=== PATIENT | female | born 1965 | race Two or more races ===

== ENCOUNTER 2018-09-01 09:49 | Inpatient (IN) | payer MEDICAID ==
[~2018-09-01] VITALS: Ht 162.6 cm; Wt 107.2 kg
[2018-09-01] VITALS (48 sets, daily range): BP systolic 92–136; BP diastolic 41–81
[~2018-09-01 09:49] MED LIST: ASPI-231 PO; ATE50T PO; ATOR20TA PO; CHOL50004 PO; IBU800T PO; TRAM50TA2 PO
[2018-09-01] MEDS ORDERED: MIDAZOLAM HCL 1MG/1ML-2 ML VIAL ONE (10:03)
[2018-09-01] MEDS ORDERED: ANGIOMAX 250 MG VIAL IV ONE (10:03)
[2018-09-01] MEDS ORDERED: fentaNYL CITRATE 100 MCG/2 ML VL ONE (10:03)
[2018-09-01] MEDS ORDERED: ATROPINE SULF 1 MG/10ml SYR ONE (10:04)
[2018-09-01] MEDS ORDERED: SODIUM CHL 0.9% 50 ML ONE (10:04)
[2018-09-01] MEDS ORDERED: EPINEPHrine HCL 1 MG/10 ML SYRG ONE (10:04)
[2018-09-01] MEDS ORDERED: HEPARIN SODIUM (PORCINE) 5000 UNITS/ML 1ML VIAL ONE (10:05)
[2018-09-01] MEDS ORDERED: LIDOCAINE 2%HCL (LOCAL ANESTH.) INJ 20ML MDV ONE ×2 (10:05→12:18)
[2018-09-01] MEDS ORDERED: IOHEXOL 350 MG/ML 100ML IJ ONE (10:05)
[2018-09-01] MEDS ORDERED: ONDANSETRON HCL 4 MG/2 ML VIAL ONE (10:06)
[2018-09-01] MEDS ORDERED: MORPHINE SULF INJ 2 MG/ML SYRINGE 1ML ONE (10:06)
[2018-09-01] MEDS ORDERED: ONDANSETRON HCL 4 MG/2 ML VIAL IV ONE (10:15)
[2018-09-01] MEDS ORDERED: MORPHINE SULFATE 4 MG/ML SYR/VIAL IV ONE (10:15)
[2018-09-01] MEDS ORDERED: ASPirin 81 mg TAB PO ONE (10:15)
[2018-09-01] MEDS ORDERED: DOPamine 1600MCG/ML D5W 250 ML IV ONE (10:16)
[2018-09-01 10:17] LABS: Basophils # (auto) 0.1 uL; Basophils % (auto) 0.7 % (0.0-2.0); Eosinophils # (auto) 0.3 uL; Eosinophils % (auto) 3.5 % (0.0-7.0); Hematocrit 34.3 % (36.0-46.0); Hemoglobin 11.1 g/dL (12.2-16.2); Lymphocytes # (auto) 1.6 uL; Lymphocytes % (auto) 18.3 % (10.0-50.0); Mean Corpuscular Hemoglobin 29.7 pg (28.0-32.0); Mean Corpuscular Hgb Conc. 32.3 g/dL (32.0-36.0); Mean Corpuscular Volume 91.7 fL (80.0-100.0); Monocytes # (auto) 0.6 uL; Monocytes % (auto) 6.9 % (0.0-12.0); Neutrophils # (auto) 6.3 uL; Neutrophils % (auto) 70.6 % (37.0-80.0); Nucleated Red Blood Cells % 0.2 %; Platelet Count (auto) 277 10^3/uL (140-450); Red Blood Cells 3.73 10^6/uL (4.0-5.20); Red Cell Distribution Width 15.1 % (11.8-14.3)
[2018-09-01] MEDS ORDERED: HEPARIN SODIUM (PORCINE) 5000 UNITS/ML 1ML VIAL SC ONE (10:30)
[2018-09-01 10:37] LABS: INR 0.93 (0.9-1.15); Partial Thromboplastin Time 25.7 sec (23.78-33.04)
[2018-09-01 10:38] LABS: Albumin 3.3 g/dL (3.4-5.0); BUN/Creatinine Ratio 9.2; Calcium 8.4 mg/dL (8.5-10.1)
[2018-09-01 10:43] LABS: Bilirubin, Total 0.4 mg/dL (0.2-1.0); Total Protein 7.8 g/dL (6.4-8.2)
[2018-09-01] MEDS ORDERED: NOREPINEPHRINE 8 MG/250ML KIT 0 ML IV ONE (11:01)
[2018-09-01] MEDS ORDERED: NOREPINEPHRINE 8 MG/250ML KIT 250 ML IV ONE (11:03)
[2018-09-01] MEDS ORDERED: CLOPIDOGREL 300 MG TAB ONE (11:31)
[2018-09-01] MEDS ORDERED: NITROGLYCERIN 0.4 MG SL TAB SL PRN (12:15)
[2018-09-01] MEDS ORDERED: MORPHINE SULFATE 4 MG/ML SYR/VIAL IV PRN (12:15)
[2018-09-01] MEDS ORDERED: IODIXANOL 320MG/ML 100ML BTL IV ONE (12:18)
[2018-09-01] MEDS ORDERED: FUROSEMIDE 20 MG/2 ML VIAL IV ONE (15:45)
[2018-09-01 16:11] LABS: Basophils # (auto) 0 uL; Basophils % (auto) 0.2 % (0.0-2.0); Eosinophils # (auto) 0 uL; Hematocrit 34.6 % (36.0-46.0); Hemoglobin 11.3 g/dL (12.2-16.2); Lymphocytes # (auto) 0.8 uL; Lymphocytes % (auto) 5.1 % (10.0-50.0); Mean Corpuscular Hemoglobin 29.9 pg (28.0-32.0); Mean Corpuscular Hgb Conc. 32.5 g/dL (32.0-36.0); Mean Corpuscular Volume 91.9 fL (80.0-100.0); Monocytes # (auto) 0.9 uL; Monocytes % (auto) 6.2 % (0.0-12.0); Neutrophils # (auto) 13.2 uL; Neutrophils % (auto) 88.5 % (37.0-80.0); Nucleated Red Blood Cells % 0.3 %; Platelet Count (auto) 268 10^3/uL (140-450); Red Blood Cells 3.77 10^6/uL (4.0-5.20); Red Cell Distribution Width 14.9 % (11.8-14.3); White Blood Cell 14.9 10^3/uL (4.4-10.8)
[2018-09-01 16:25] LABS: BUN/Creatinine Ratio 9.9; Calcium 7.2 mg/dL (8.5-10.1); Potassium 4.4 mmol/L (3.5-5.1)
[2018-09-01] MEDS ORDERED: AMLO5TAB13 PO (16:30)
[2018-09-01] MEDS ORDERED: MELO1TAB56 PO (16:30)
[2018-09-01 16:37] LABS: Bilirubin, Total 0.4 mg/dL (0.2-1.0); Total Protein 6.9 g/dL (6.4-8.2)
[2018-09-01] MEDS: ACETAMINOPHEN 325 MG TAB PO PRN (18:08)
[2018-09-01] MEDS: IPRATROPIUM BROM 0.5 MG/2.5ML INH SOL NEB PRN (20:07)
[2018-09-01] MEDS: ALBUTEROL SULF 2.5 MG/0.5ML(0.5%) NEB SOLN NEB PRN (20:07)
[2018-09-01] MEDS ORDERED: KETOROLAC TROMETH 30 MG/ML 1ML VIAL IV ONE (20:15)
[2018-09-01] MEDS ORDERED: DOPamine 1600mCg/ml 400MG/250ml NSorD5 KIT/BAG IV ONE (20:56)
[2018-09-01] MEDS ORDERED: ATROPINE SULF 1 MG/10ml SYR IV ONE (20:56)
[2018-09-01] MEDS ORDERED: PANTOPRAZOLE 40 MG/10 ML VIAL IV ONE (21:45)
[2018-09-01] MEDS: ATORVASTATIN 20 MG TAB PO SCH (21:52)
[2018-09-01] MEDS: NOREPINEPHRINE 8 MG/250ML KIT 250 ML IV SCH (21:53)
[2018-09-01] MEDS: ZOLPIDEM TARTRATE 5 MG TAB PO PRN (22:13)
[2018-09-02] VITALS (89 sets, daily range): BP systolic 85–127; BP diastolic 44–78
[2018-09-02] MEDS: HYDROmorphone HCL 2 MG/ML VL IV PRN ×2 (00:17→23:26)
[2018-09-02 04:32] LABS: Anion Gap 9 (5-15); BUN/Creatinine Ratio 10.1; Blood Urea Nitrogen 13 mg/dL (7-18); Calcium 7.9 mg/dL (8.5-10.1); Carbon Dioxide 22 mmol/L (21-32); Chloride 108 mmol/L (98-107); GFR African American 56 mL/min; GFR Non-African American 46 mL/min; Glucose 141 mg/dL (74-106); Potassium 4.1 mmol/L (3.5-5.1); Sodium 139 mmol/L (136-145)
[2018-09-02] MEDS: CLOPIDOGREL BISULFATE 75 MG TAB PO SCH (09:43)
[2018-09-02] MEDS: ASPirin 81 mg TAB PO SCH (09:43)
[2018-09-02] MEDS ORDERED: PANTOPRAZOLE 40 MG/10 ML VIAL IV SCH (10:00)
[2018-09-02 10:36] LABS: Basophils # (auto) 0 uL; Basophils % (auto) 0.2 % (0.0-2.0); Eosinophils # (auto) 0 uL; Eosinophils % (auto) 0.1 % (0.0-7.0); Hematocrit 30.5 % (36.0-46.0); Hemoglobin 10.1 g/dL (12.2-16.2); Lymphocytes # (auto) 1.2 uL; Lymphocytes % (auto) 14.3 % (10.0-50.0); Mean Corpuscular Hemoglobin 30.3 pg (28.0-32.0); Mean Corpuscular Volume 91.8 fL (80.0-100.0); Monocytes # (auto) 0.6 uL; Monocytes % (auto) 7.1 % (0.0-12.0); Neutrophils # (auto) 6.4 uL; Neutrophils % (auto) 78.3 % (37.0-80.0); Nucleated Red Blood Cells % 0.1 %; Platelet Count (auto) 223 10^3/uL (140-450); Red Blood Cells 3.33 10^6/uL (4.0-5.20); Red Cell Distribution Width 15.1 % (11.8-14.3); White Blood Cell 8.2 10^3/uL (4.4-10.8)
[2018-09-02] MEDS: NOREPINEPHRINE 8 MG/250ML KIT 250 ML IV SCH (11:40)
[2018-09-02] MEDS ORDERED: SODIUM CHLORIDE 0.9% 1,000 ML IV ONE (13:45)
[2018-09-02 14:27] LABS: Urine Bacteria FEW /hpf (None Seen); Urine Blood 2+ /uL (Negative); Urine Mucus FEW (None Seen); Urine Specific Gravity 1.006 (1.001-1.035); Urine WBC 23 /hpf (0 - 5)
[2018-09-02] MEDS: ACETAMINOPHEN 325 MG TAB PO PRN (16:30)
[2018-09-02] MEDS: ATORVASTATIN 20 MG TAB PO SCH (21:36)
[2018-09-02] MEDS: ZOLPIDEM TARTRATE 5 MG TAB PO PRN (21:36)
[2018-09-02] MEDS: CARVEDILOL 3.125 MG TAB PO SCH (21:36)
[2018-09-03] VITALS (51 sets, daily range): BP systolic 83–122; BP diastolic 52–91
[2018-09-03] MEDS ORDERED: SODIUM CHLORIDE 0.9% 1,000 ML IV SCH (05:15)
[2018-09-03 05:37] LABS: Basophils # (auto) 0 uL; Basophils % (auto) 0.2 % (0.0-2.0); Eosinophils # (auto) 0 uL; Eosinophils % (auto) 0.2 % (0.0-7.0); Hematocrit 27.4 % (36.0-46.0); Hemoglobin 9.1 g/dL (12.2-16.2); Lymphocytes % (auto) 11.2 % (10.0-50.0); Mean Corpuscular Hemoglobin 30.7 pg (28.0-32.0); Mean Corpuscular Hgb Conc. 33.3 g/dL (32.0-36.0); Mean Corpuscular Volume 92.2 fL (80.0-100.0); Monocytes # (auto) 0.6 uL; Monocytes % (auto) 6.7 % (0.0-12.0); Neutrophils # (auto) 7.5 uL; Neutrophils % (auto) 81.7 % (37.0-80.0); Nucleated Red Blood Cells % 0.1 %; Platelet Count (auto) 201 10^3/uL (140-450); Red Blood Cells 2.97 10^6/uL (4.0-5.20); Red Cell Distribution Width 15.3 % (11.8-14.3); White Blood Cell 9.1 10^3/uL (4.4-10.8)
[2018-09-03 06:11] LABS: Albumin 2.7 g/dL (3.4-5.0); BUN/Creatinine Ratio 12.4; Bilirubin, Total 0.4 mg/dL (0.2-1.0); Calcium 7.9 mg/dL (8.5-10.1); Total Protein 6.5 g/dL (6.4-8.2)
[2018-09-03] MEDS ORDERED: cefTRIAXone 1GM/50ML D5W 50 ML IV ONE (09:15)
[2018-09-03] MEDS: ACETAMINOPHEN 325 MG TAB PO PRN ×2 (09:33→20:33)
[2018-09-03] MEDS: LISINOPRIL 5 MG TAB PO SCH (10:00)
[2018-09-03] MEDS: CARVEDILOL 3.125 MG TAB PO SCH ×2 (10:00→22:07)
[2018-09-03] MEDS: CLOPIDOGREL BISULFATE 75 MG TAB PO SCH (11:00)
[2018-09-03] MEDS: ASPirin 81 mg TAB PO SCH (11:00)
[2018-09-03] MEDS ORDERED: DOCUSATE SOD 100 MG CAP PO ONE (11:15)
[2018-09-03] MEDS: ALBUMIN 25% 100 ML IV SCH ×2 (13:30→17:00)
[2018-09-03] MEDS ORDERED: SODIUM CHLORIDE 0.9% 1,000 ML IV ONE (13:30)
[2018-09-03] MEDS ORDERED: IOHEXOL 350 MG/ML 100ML IJ ONE (16:24)
[2018-09-03] MEDS ORDERED: ALBUMIN 25% 100 ML IV ONE (16:51)
[2018-09-03] MEDS: ALBUTEROL SULF 2.5 MG/0.5ML(0.5%) NEB SOLN NEB PRN (19:22)
[2018-09-03] MEDS: IPRATROPIUM BROM 0.5 MG/2.5ML INH SOL NEB PRN (19:22)
[2018-09-03] MEDS: ATORVASTATIN 20 MG TAB PO SCH (21:51)
[2018-09-03] MEDS: DOCUSATE SOD 100 MG CAP PO SCH (21:52)
[2018-09-03] MEDS: ZOLPIDEM TARTRATE 5 MG TAB PO PRN (21:53)
[2018-09-03] MEDS: HYDROmorphone HCL 2 MG/ML VL IV PRN (22:26)
[2018-09-04] VITALS (64 sets, daily range): BP systolic 85–129; BP diastolic 50–76
[2018-09-04] MEDS: ALBUTEROL SULF 2.5 MG/0.5ML(0.5%) NEB SOLN NEB PRN ×2 (03:51→06:43)
[2018-09-04] MEDS: IPRATROPIUM BROM 0.5 MG/2.5ML INH SOL NEB PRN ×2 (03:51→06:43)
[2018-09-04 04:41] LABS: Basophils # (auto) 0 uL; Basophils % (auto) 0.2 % (0.0-2.0); Eosinophils # (auto) 0.1 uL; Eosinophils % (auto) 0.8 % (0.0-7.0); Hematocrit 27.4 % (36.0-46.0); Hemoglobin 8.9 g/dL (12.2-16.2); Lymphocytes # (auto) 1.1 uL; Lymphocytes % (auto) 10.2 % (10.0-50.0); Mean Corpuscular Hemoglobin 30.1 pg (28.0-32.0); Mean Corpuscular Hgb Conc. 32.5 g/dL (32.0-36.0); Mean Corpuscular Volume 92.6 fL (80.0-100.0); Monocytes # (auto) 0.5 uL; Monocytes % (auto) 4.3 % (0.0-12.0); Neutrophils # (auto) 9.1 uL; Neutrophils % (auto) 84.5 % (37.0-80.0); Nucleated Red Blood Cells % 0.1 %; Platelet Count (auto) 205 10^3/uL (140-450); Red Blood Cells 2.96 10^6/uL (4.0-5.20); Red Cell Distribution Width 15.2 % (11.8-14.3); White Blood Cell 10.8 10^3/uL (4.4-10.8)
[2018-09-04 05:01] LABS: BUN/Creatinine Ratio 15.6; Calcium 8.4 mg/dL (8.5-10.1); Potassium 3.8 mmol/L (3.5-5.1)
[2018-09-04] MEDS ORDERED: IPRATROPIUM BROM 0.5 MG/2.5ML INH SOL NEB ONE (06:45)
[2018-09-04] MEDS ORDERED: methylPREDNISolone SOD SUCC 125 MG/2 ML VL IV ONE (06:45)
[2018-09-04] MEDS ORDERED: FUROSEMIDE 20 MG/2 ML VIAL IV ONE (06:45)
[2018-09-04] MEDS ORDERED: ALBUTEROL SULF 2.5 MG/0.5ML(0.5%) NEB SOLN NEB ONE (06:45)
[2018-09-04] MEDS ORDERED: DILTIAZEM HCL 25 MG/5 ML VIAL IV ONE ×2 (07:10→07:15)
[2018-09-04] MEDS ORDERED: cefTRIAXone 1GM/50ML D5W 50 ML IV SCH (09:00)
[2018-09-04] MEDS: LISINOPRIL 5 MG TAB PO SCH (09:42)
[2018-09-04] MEDS: PANTOPRAZOLE 40 MG TAB PO SCH (09:42)
[2018-09-04] MEDS: CLOPIDOGREL BISULFATE 75 MG TAB PO SCH (09:42)
[2018-09-04] MEDS: CARVEDILOL 3.125 MG TAB PO SCH ×2 (09:43→22:00)
[2018-09-04] MEDS: DOCUSATE SOD 100 MG CAP PO SCH ×2 (09:43→21:53)
[2018-09-04] MEDS: ASPirin 81 mg TAB PO SCH (09:43)
[2018-09-04] MEDS: LEVOFLOXACIN 750MG 150 ML IV SCH (09:44)
[2018-09-04] MEDS ORDERED: MORPHINE SULFATE 4 MG/ML SYR/VIAL IV ONE (11:15)
[2018-09-04] MEDS: ACETAMINOPHEN 325 MG TAB PO PRN (21:21)
[2018-09-04] MEDS: ATORVASTATIN 20 MG TAB PO SCH (21:52)
[2018-09-04] MEDS: ZOLPIDEM TARTRATE 5 MG TAB PO PRN (22:08)
[2018-09-04] MEDS: HYDROmorphone HCL 2 MG/ML VL IV PRN (22:14)
[2018-09-05] VITALS (10 sets, daily range): BP systolic 91–117; BP diastolic 53–71
[2018-09-05 04:15] LABS: Basophils # (auto) 0 uL; Eosinophils # (auto) 0 uL; Hemoglobin 8.4 g/dL (12.2-16.2); Lymphocytes # (auto) 0.8 uL; Monocytes # (auto) 0.6 uL; Monocytes % (auto) 5.9 % (0.0-12.0)
[2018-09-05 04:17] LABS: Basophils % (auto) 0.2 % (0.0-2.0); Hematocrit 25.1 % (36.0-46.0); Lymphocytes % (auto) 8.1 % (10.0-50.0); Mean Corpuscular Hemoglobin 30.5 pg (28.0-32.0); Mean Corpuscular Hgb Conc. 33.4 g/dL (32.0-36.0); Mean Corpuscular Volume 91.2 fL (80.0-100.0); Neutrophils # (auto) 8.3 uL; Neutrophils % (auto) 85.8 % (37.0-80.0); Nucleated Red Blood Cells % 0.2 %; Platelet Count (auto) 235 10^3/uL (140-450); Red Blood Cells 2.75 10^6/uL (4.0-5.20); Red Cell Distribution Width 14.8 % (11.8-14.3); White Blood Cell 9.7 10^3/uL (4.4-10.8)
[2018-09-05 04:33] LABS: Albumin 3.1 g/dL (3.4-5.0); Calcium 8.6 mg/dL (8.5-10.1); Potassium 3.7 mmol/L (3.5-5.1)
[2018-09-05 04:36] LABS: BUN/Creatinine Ratio 21.2
[2018-09-05 04:39] LABS: Bilirubin, Total 0.7 mg/dL (0.2-1.0); Total Protein 7.1 g/dL (6.4-8.2)
[2018-09-05] MEDS: LISINOPRIL 5 MG TAB PO SCH (09:41)
[2018-09-05] MEDS: ASPirin 81 mg TAB PO SCH (09:42)
[2018-09-05] MEDS: PANTOPRAZOLE 40 MG TAB PO SCH (09:43)
[2018-09-05] MEDS: CLOPIDOGREL BISULFATE 75 MG TAB PO SCH (09:44)
[2018-09-05] MEDS: CARVEDILOL 3.125 MG TAB PO SCH ×2 (09:45→22:27)
[2018-09-05] MEDS: LEVOFLOXACIN 750MG 150 ML IV SCH (09:48)
[2018-09-05] MEDS: DOCUSATE SOD 100 MG CAP PO SCH ×2 (09:48→22:24)
[2018-09-05] MEDS: ACETAMINOPHEN 325 MG TAB PO PRN (16:28)
[2018-09-05] MEDS: ATORVASTATIN 20 MG TAB PO SCH (22:24)
[2018-09-05] MEDS: ALBUTEROL SULF 2.5 MG/0.5ML(0.5%) NEB SOLN NEB PRN (22:38)
[2018-09-05] MEDS: IPRATROPIUM BROM 0.5 MG/2.5ML INH SOL NEB PRN (22:38)
[2018-09-05] MEDS: ZOLPIDEM TARTRATE 5 MG TAB PO PRN (23:09)
[2018-09-05] MEDS: HYDROmorphone HCL 2 MG/ML VL IV PRN (23:09)
[2018-09-06] VITALS (8 sets, daily range): BP systolic 91–110; BP diastolic 62–77
[2018-09-06] MEDS: CLOPIDOGREL BISULFATE 75 MG TAB PO SCH (09:16)
[2018-09-06] MEDS: PANTOPRAZOLE 40 MG TAB PO SCH (09:16)
[2018-09-06] MEDS: ASPirin 81 mg TAB PO SCH (09:17)
[2018-09-06] MEDS: CARVEDILOL 3.125 MG TAB PO SCH ×2 (09:17→22:16)
[2018-09-06] MEDS: LISINOPRIL 5 MG TAB PO SCH (09:18)
[2018-09-06] MEDS: LEVOFLOXACIN 750MG 150 ML IV SCH (09:18)
[2018-09-06] MEDS: DOCUSATE SOD 100 MG CAP PO SCH (10:00)
[2018-09-06] MEDS ORDERED: MORPHINE SULFATE 4 MG/ML SYR/VIAL IV PRN (11:15)
[2018-09-06] MEDS ORDERED: POTASSIUM CHL 10 Meq TABLET PO ONE (11:15)
[2018-09-06] MEDS ORDERED: FUROSEMIDE 20 MG TAB PO ONE (11:15)
[2018-09-06] MEDS: ACETAMINOPHEN 325 MG TAB PO PRN (17:21)
[2018-09-06] MEDS: ATORVASTATIN 20 MG TAB PO SCH (22:17)
[2018-09-06] MEDS: ZOLPIDEM TARTRATE 5 MG TAB PO PRN (23:07)
[2018-09-06] MEDS: HYDROmorphone HCL 2 MG/ML VL IV PRN (23:07)
[2018-09-07 05:00] VITALS: BP 90/56
[2018-09-07 07:00] LABS: Basophils # (auto) 0 uL; Basophils % (auto) 0.4 % (0.0-2.0); Eosinophils # (auto) 0.2 uL; Eosinophils % (auto) 3.2 % (0.0-7.0); Hematocrit 28.2 % (36.0-46.0); Hemoglobin 9.4 g/dL (12.2-16.2); Lymphocytes # (auto) 1.1 uL; Lymphocytes % (auto) 14.1 % (10.0-50.0); Mean Corpuscular Hemoglobin 30.1 pg (28.0-32.0); Mean Corpuscular Hgb Conc. 33.2 g/dL (32.0-36.0); Mean Corpuscular Volume 90.5 fL (80.0-100.0); Monocytes # (auto) 0.5 uL; Monocytes % (auto) 7.2 % (0.0-12.0); Neutrophils # (auto) 5.7 uL; Neutrophils % (auto) 75.1 % (37.0-80.0); Nucleated Red Blood Cells % 0.1 %; Platelet Count (auto) 313 10^3/uL (140-450); Red Blood Cells 3.12 10^6/uL (4.0-5.20); Red Cell Distribution Width 14.7 % (11.8-14.3); White Blood Cell 7.6 10^3/uL (4.4-10.8)
[2018-09-07 07:11] LABS: BUN/Creatinine Ratio 18.8; Potassium 3.5 mmol/L (3.5-5.1)
[2018-09-07] MEDS: ACETAMINOPHEN 325 MG TAB PO PRN (08:23)
[2018-09-07 08:37] VITALS: BP 113/79
[2018-09-07] MEDS: LEVOFLOXACIN 750MG 150 ML IV SCH (09:29)
[2018-09-07] MEDS: ASPirin 81 mg TAB PO SCH (09:30)
[2018-09-07] MEDS: LISINOPRIL 5 MG TAB PO SCH (09:30)
[2018-09-07] MEDS: CARVEDILOL 3.125 MG TAB PO SCH ×2 (09:31→21:26)
[2018-09-07] MEDS: PANTOPRAZOLE 40 MG TAB PO SCH (09:31)
[2018-09-07] MEDS: CLOPIDOGREL BISULFATE 75 MG TAB PO SCH (09:31)
[2018-09-07 12:53] VITALS: BP 102/71
[2018-09-07 17:00] VITALS: BP 98/58
[2018-09-07] MEDS: ATORVASTATIN 20 MG TAB PO SCH (21:26)
[2018-09-07 22:00] VITALS: BP 107/69
[2018-09-07] MEDS: ZOLPIDEM TARTRATE 5 MG TAB PO PRN (22:52)
[2018-09-07] MEDS: HYDROmorphone HCL 2 MG/ML VL IV PRN (22:52)
[2018-09-08 05:00] VITALS: BP 90/51
[2018-09-08] MEDS ORDERED: OPTISON 3ml Vial for INJ IV ONE (08:31)
[2018-09-08 09:28] VITALS: BP 96/63
[2018-09-08] MEDS: PANTOPRAZOLE 40 MG TAB PO SCH (09:51)
[2018-09-08] MEDS: CARVEDILOL 3.125 MG TAB PO SCH ×2 (09:51→21:09)
[2018-09-08] MEDS: CLOPIDOGREL BISULFATE 75 MG TAB PO SCH (09:51)
[2018-09-08] MEDS: LEVOFLOXACIN 250 MG TAB PO SCH (09:51)
[2018-09-08] MEDS: LISINOPRIL 5 MG TAB PO SCH (09:52)
[2018-09-08] MEDS: ASPirin 81 mg TAB PO SCH (09:52)
[2018-09-08 13:25] VITALS: BP 83/60
[2018-09-08 16:38] VITALS: BP 96/65
[2018-09-08 20:19] VITALS: BP 96/65
[2018-09-08] MEDS: HYDROmorphone HCL 2 MG/ML VL IV PRN (21:09)
[2018-09-08] MEDS: ATORVASTATIN 20 MG TAB PO SCH (21:09)
[2018-09-08] MEDS: ZOLPIDEM TARTRATE 5 MG TAB PO PRN (21:30)
[2018-09-08 21:51] VITALS: BP 107/70
[2018-09-09 05:00] VITALS: BP 99/66
[2018-09-09] MEDS: PANTOPRAZOLE 40 MG TAB PO SCH (08:43)
[2018-09-09] MEDS: CLOPIDOGREL BISULFATE 75 MG TAB PO SCH (08:43)
[2018-09-09] MEDS: LEVOFLOXACIN 250 MG TAB PO SCH (08:43)
[2018-09-09] MEDS: ASPirin 81 mg TAB PO SCH (08:44)
[2018-09-09] MEDS: CARVEDILOL 3.125 MG TAB PO SCH ×2 (08:45→22:26)
[2018-09-09] MEDS: LISINOPRIL 5 MG TAB PO SCH (08:46)
[2018-09-09 09:00] VITALS: BP 93/67
[2018-09-09] MEDS ORDERED: ASPI81CH43 PO (10:30)
[2018-09-09] MEDS ORDERED: LISI-275 PO (10:30)
[2018-09-09] MEDS ORDERED: CLOP75TA28 PO (10:30)
[2018-09-09] MEDS ORDERED: ATOR20TA50 PO (10:30)
[2018-09-09] MEDS ORDERED: CAR3125T PO (10:30)
[2018-09-09] MEDS ORDERED: LEVO250T19 PO (10:37)
[2018-09-09] MEDS ORDERED: NITR0.4S29 SL (10:37)
[2018-09-09 13:00] VITALS: BP 91/58
[2018-09-09 17:13] VITALS: BP 95/63
[2018-09-09 21:29] VITALS: BP 113/72
[2018-09-09 22:00] VITALS: BP 113/72
[2018-09-09] MEDS: ATORVASTATIN 20 MG TAB PO SCH (22:26)
[2018-09-09] MEDS: HYDROmorphone HCL 2 MG/ML VL IV PRN (22:27)
[2018-09-10] MEDS: ACETAMINOPHEN 325 MG TAB PO PRN (05:30)
[2018-09-10 05:39] VITALS: BP 104/57
[2018-09-10 09:19] VITALS: BP 102/70
[2018-09-10] MEDS: CLOPIDOGREL BISULFATE 75 MG TAB PO SCH (09:57)
[2018-09-10] MEDS: CARVEDILOL 3.125 MG TAB PO SCH ×2 (09:57→22:03)
[2018-09-10] MEDS: ASPirin 81 mg TAB PO SCH (09:58)
[2018-09-10] MEDS: LEVOFLOXACIN 250 MG TAB PO SCH (09:58)
[2018-09-10] MEDS: PANTOPRAZOLE 40 MG TAB PO SCH (09:58)
[2018-09-10] MEDS: LISINOPRIL 5 MG TAB PO SCH (09:59)
[2018-09-10 13:10] VITALS: BP 93/59
[2018-09-10 16:28] VITALS: BP 127/74
[2018-09-10 17:22] VITALS: BP 122/76
[2018-09-10] MEDS: ATORVASTATIN 20 MG TAB PO SCH (22:03)
== END 2018-09-10 22:00 | disposition home or self-care (01) | DRG 248 ==
LOC: ER 09:49 → EDUNIT# 09:49 → CATH 11:36 → ICU WEST 11:37 → DOU IN ICU 09-05 03:45 → TELE-EAST 09-06 21:00
PROVIDERS: ADMIT Internal Medicine Cardiovascular Disease; ATTEND Internal Medicine
PROC: 02703DZ Dilation of Coronary Artery, One Artery with Intraluminal Device, Percutaneous Approach (ICD-10-PCS; principal; 2018-09-01)
PROC: 02C03ZZ Extirpation of Matter from Coronary Artery, One Artery, Percutaneous Approach (ICD-10-PCS; 2018-09-01)
PROC: 4A023N7 Measurement of Cardiac Sampling and Pressure, Left Heart, Percutaneous Approach (ICD-10-PCS; 2018-09-01)
PROC: B2111ZZ Fluoroscopy of Multiple Coronary Arteries using Low Osmolar Contrast (ICD-10-PCS; 2018-09-01)
PROC: B2151ZZ Fluoroscopy of Left Heart using Low Osmolar Contrast (ICD-10-PCS; 2018-09-01)
PROC: 30233N1 Transfusion of Nonautologous Red Blood Cells into Peripheral Vein, Percutaneous Approach (ICD-10-PCS; 2018-09-01)
PROC: 5A09357 Assistance with Respiratory Ventilation, Less than 24 Consecutive Hours, Continuous Positive Airway Pressure (ICD-10-PCS; 2018-09-04)
DX: I21.3 ST elevation (STEMI) myocardial infarction of unspecified site (principal); J18.9 Pneumonia, unspecified organism; R57.0 Cardiogenic shock; N17.0 Acute kidney failure with tubular necrosis; I50.41 Acute combined systolic (congestive) and diastolic (congestive) heart failure; J96.01 Acute respiratory failure with hypoxia; I44.2 Atrioventricular block, complete; E44.1 Mild protein-calorie malnutrition; E87.2 Acidosis; N39.0 Urinary tract infection, site not specified; I13.0 Hypertensive heart and chronic kidney disease with heart failure and stage 1 through stage 4 chronic kidney disease, or unspecified chronic kidney disease; D25.9 Leiomyoma of uterus, unspecified; D64.9 Anemia, unspecified; E11.21 Type 2 diabetes mellitus with diabetic nephropathy; E78.5 Hyperlipidemia, unspecified; N95.0 Postmenopausal bleeding; N18.2 Chronic kidney disease, stage 2 (mild); B96.20 Unspecified Escherichia coli [E. coli] as the cause of diseases classified elsewhere; I25.110 Atherosclerotic heart disease of native coronary artery with unstable angina pectoris; E66.01 Morbid (severe) obesity due to excess calories; Z68.41 Body mass index [BMI] 40.0-44.9, adult; Z90.49 Acquired absence of other specified parts of digestive tract
CPT/HCPCS: 36415; 36430; 36600; 71045; 71275; 76856; 80048; 80053; 80061; 81001; 82805; 83036; 83735; 83880; 84443; 84484; 85025; 85379; 85610; 85730; 86850; 86900; 86901; 86920; 87070; 87081; 87086; 87088; 87186; 87205; 92933; 93005; 93306; 93458; 94640; 94660; 96361; 96365; 96375; 97110; 97116; 97163; 99152; 99291; A6257; C1751; C1874; C1887; C9113; G0378; J0696; J1885; J1956; J2250; J2405; P9047; Q9956; Q9967

== ENCOUNTER 2018-09-22 17:42 | Emergency (ER) | payer MEDICAID ==
[~2018-09-22] VITALS: Ht 162.6 cm; Wt 100.2 kg
[~2018-09-22 17:42] MED LIST changes: -ASPI-231 PO; +ASPI81CH43 PO; -ATE50T PO; -ATOR20TA PO; +ATOR20TA50 PO; +CAR3125T PO; -CHOL50004 PO; +CLOP75TA28 PO; -IBU800T PO; +LEVO250T19 PO; +LISI-275 PO; +NITR0.4S29 SL; -TRAM50TA2 PO
[2018-09-22 18:42] LABS: Basophils # (auto) 0.1 uL; Eosinophils # (auto) 0.2 uL; Eosinophils % (auto) 3.8 % (0.0-7.0); Hematocrit 30.3 % (36.0-46.0); Lymphocytes % (auto) 17.5 % (10.0-50.0); Mean Corpuscular Hemoglobin 29.6 pg (28.0-32.0); Mean Corpuscular Hgb Conc. 32.8 g/dL (32.0-36.0); Mean Corpuscular Volume 90.1 fL (80.0-100.0); Monocytes # (auto) 0.4 uL; Monocytes % (auto) 6.9 % (0.0-12.0); Neutrophils # (auto) 4.2 uL; Neutrophils % (auto) 70.8 % (37.0-80.0); Platelet Count (auto) 407 10^3/uL (140-450); Red Blood Cells 3.37 10^6/uL (4.0-5.20)
[2018-09-22 18:48] LABS: Albumin 3.5 g/dL (3.4-5.0); Anion Gap 3 (5-15); Blood Urea Nitrogen 24 mg/dL (7-18); Carbon Dioxide 27 mmol/L (21-32); Chloride 107 mmol/L (98-107); Glucose 113 mg/dL (74-106); Magnesium 2.3 mg/dL (1.6-2.6); Potassium 4.1 mmol/L (3.5-5.1); Sodium 137 mmol/L (136-145)
[2018-09-22 18:53] LABS: Alanine Aminotransferase 20 U/L (13-56); Alkaline Phosphatase 100 U/L (45-117); Aspartate Aminotransferase 17 U/L (15-37); BUN/Creatinine Ratio 20.7; Bilirubin, Total 0.4 mg/dL (0.2-1.0); GFR African American 63 mL/min; GFR Non-African American 52 mL/min; Total Protein 8.2 g/dL (6.4-8.2)
[2018-09-22 18:55] LABS: INR 0.95 (0.9-1.15); Partial Thromboplastin Time 29.3 sec (23.78-33.04); Prothrombin Time 10.2 sec (9.27-12.13)
[2018-09-22 21:20] VITALS: BP 196/84
[2018-09-22] MEDS ORDERED: FUROSEMIDE 20 MG/2 ML VIAL IV ONE (23:00)
== END 2018-09-22 23:29 | disposition home or self-care (01) ==
LOC: ER 17:47
DX: I11.0 Hypertensive heart disease with heart failure (principal); I50.9 Heart failure, unspecified; I25.2 Old myocardial infarction; D64.9 Anemia, unspecified; Z90.49 Acquired absence of other specified parts of digestive tract
CPT/HCPCS: 36415; 71046; 80053; 83735; 83880; 84484; 85025; 85610; 85730; 93005; 94761; 99284; J1940

== ENCOUNTER 2018-10-17 13:35 | Inpatient (IN) | payer MEDICAID ==
[2018-10-17] VITALS (22 sets, daily range): BP systolic 87–124; BP diastolic 47–74
[~2018-10-17] VITALS: Ht 162.6 cm; Wt 101.0 kg
[2018-10-17] MEDS ORDERED: SODIUM CHLORIDE 0.9% 500 ML IV ONE (13:53)
[2018-10-17 14:28] LABS: Basophils # (auto) 0.1 uL; Eosinophils # (auto) 0.2 uL; Neutrophils # (auto) 3.9 uL; Red Blood Cells 2.39 10^6/uL (4.0-5.20)
[2018-10-17 14:29] LABS: Basophils % (auto) 1.1 % (0.0-2.0); Eosinophils % (auto) 4.4 % (0.0-7.0); Hematocrit 20.8 % (36.0-46.0); Lymphocytes # (auto) 1.1 uL; Lymphocytes % (auto) 19.5 % (10.0-50.0); Mean Corpuscular Hemoglobin 27.8 pg (28.0-32.0); Mean Corpuscular Hgb Conc. 31.9 g/dL (32.0-36.0); Monocytes # (auto) 0.3 uL; Monocytes % (auto) 5.7 % (0.0-12.0); Neutrophils % (auto) 69.3 % (37.0-80.0); Nucleated Red Blood Cells % 0.1 %; Platelet Count (auto) 462 10^3/uL (140-450); Red Cell Distribution Width 15.6 % (11.8-14.3); White Blood Cell 5.6 10^3/uL (4.4-10.8)
[2018-10-17 14:46] LABS: Alanine Aminotransferase 18 U/L (13-56); Albumin 3.4 g/dL (3.4-5.0); Anion Gap 2 (5-15); Aspartate Aminotransferase 17 U/L (15-37); BUN/Creatinine Ratio 16.8; Blood Urea Nitrogen 17 mg/dL (7-18); Carbon Dioxide 23 mmol/L (21-32); Chloride 111 mmol/L (98-107); GFR African American 74 mL/min; GFR Non-African American 61 mL/min; Glucose 160 mg/dL (74-106); Magnesium 2.2 mg/dL (1.6-2.6); Sodium 136 mmol/L (136-145)
[2018-10-17 14:47] LABS: INR 0.93 (0.9-1.15); Partial Thromboplastin Time 25.2 sec (23.78-33.04)
[2018-10-17 14:51] LABS: Alkaline Phosphatase 92 U/L (45-117); Bilirubin, Total 0.3 mg/dL (0.2-1.0)
[2018-10-17 15:20] LABS: Hemoglobin 6.6 g/dL (12.2-16.2)
[2018-10-17] MEDS ORDERED: PANTOPRAZOLE 40 MG TAB PO ONE (15:45)
[2018-10-17] MEDS ORDERED: MORPHINE SULFATE 4 MG/ML SYR/VIAL IV PRN (15:45)
[2018-10-17] MEDS ORDERED: PROMETHAZINE HCL 25 MG/ML 1ML IV PRN (15:45)
[2018-10-17] MEDS ORDERED: LORazepam 0.5 MG TAB PO PRN (15:45)
[2018-10-17] MEDS ORDERED: DEXTROSE (50%) 50ML SYRG IV PRN (15:45)
[2018-10-17] MEDS ORDERED: NITROGLYCERIN 0.4 MG SL TAB SL PRN (15:45)
[2018-10-17] MEDS: SODIUM CHLORIDE 0.9% 1,000 ML IV SCH ×2 (16:02→23:35)
[2018-10-17] MEDS: ACCU-CHEK COMFORT CURVE STRIP VI SCH (18:00)
[2018-10-17] MEDS: ACETAMINOPHEN 500 MG TAB PO PRN (21:03)
[2018-10-17] MEDS: ATORVASTATIN CALCIUM 40 MG PO SCH (22:03)
[2018-10-18] VITALS (31 sets, daily range): BP systolic 79–118; BP diastolic 33–82
[2018-10-18] MEDS: ACCU-CHEK COMFORT CURVE STRIP VI SCH ×3 (00:24→11:51)
[2018-10-18 00:49] LABS: Hematocrit 19.3 % (36.0-46.0)
[2018-10-18 00:52] LABS: Hemoglobin 6.2 g/dL (12.2-16.2)
[2018-10-18 05:54] LABS: Hemoglobin 9.2 g/dL (12.2-16.2)
[2018-10-18 05:56] LABS: Hematocrit 29.1 % (36.0-46.0)
[2018-10-18] MEDS: SODIUM CHLORIDE 0.9% 1,000 ML IV SCH ×2 (07:35→13:17)
[2018-10-18] MEDS: PANTOPRAZOLE 40 MG TAB PO SCH (10:25)
[2018-10-18] MEDS: ACETAMINOPHEN 500 MG TAB PO PRN (16:54)
[2018-10-18 17:24] LABS: Hematocrit 21.7 % (36.0-46.0)
[2018-10-18] MEDS: MORPHINE SULFATE 4 MG/ML SYR/VIAL IV PRN (20:55)
[2018-10-18] MEDS: ATORVASTATIN CALCIUM 40 MG PO SCH (21:55)
[2018-10-19] VITALS (7 sets, daily range): BP systolic 96–119; BP diastolic 58–77
[2018-10-19 01:10] LABS: Hemoglobin 7.7 g/dL (12.2-16.2)
[2018-10-19] MEDS: TEMAZEPAM 15 MG CAP PO PRN ×2 (01:11→21:49)
[2018-10-19 01:12] LABS: Hematocrit 23.6 % (36.0-46.0)
[2018-10-19] MEDS: SODIUM CHLORIDE 0.9% 1,000 ML IV SCH ×3 (03:18→14:29)
[2018-10-19] MEDS: HYDROcodone-ACET 5/325MG TAB PO PRN ×2 (03:28→21:53)
[2018-10-19 05:19] LABS: Basophils # (auto) 0 uL; Eosinophils # (auto) 0.4 uL; Monocytes % (auto) 8.5 % (0.0-12.0)
[2018-10-19 05:21] LABS: Basophils % (auto) 0.5 % (0.0-2.0); Eosinophils % (auto) 5.9 % (0.0-7.0); Hematocrit 23.2 % (36.0-46.0); Hemoglobin 7.8 g/dL (12.2-16.2); Lymphocytes # (auto) 1.5 uL; Lymphocytes % (auto) 22.9 % (10.0-50.0); Mean Corpuscular Hemoglobin 28.1 pg (28.0-32.0); Mean Corpuscular Hgb Conc. 33.5 g/dL (32.0-36.0); Monocytes # (auto) 0.5 uL; Neutrophils % (auto) 62.2 % (37.0-80.0); Nucleated Red Blood Cells % 0.1 %; Platelet Count (auto) 301 10^3/uL (140-450); Red Blood Cells 2.77 10^6/uL (4.0-5.20); Red Cell Distribution Width 16.2 % (11.8-14.3); White Blood Cell 6.4 10^3/uL (4.4-10.8)
[2018-10-19 05:31] LABS: Calcium 8.1 mg/dL (8.5-10.1); Potassium 3.8 mmol/L (3.5-5.1)
[2018-10-19 05:33] LABS: BUN/Creatinine Ratio 13.3
[2018-10-19] MEDS: PANTOPRAZOLE 40 MG TAB PO SCH (10:00)
[2018-10-19] MEDS: ATORVASTATIN CALCIUM 40 MG PO SCH (21:49)
[2018-10-20 05:13] LABS: Hemoglobin 8.3 g/dL (12.2-16.2)
[2018-10-20 05:17] LABS: Hematocrit 25.3 % (36.0-46.0)
[2018-10-20] MEDS: SODIUM CHLORIDE 0.9% 1,000 ML IV SCH ×2 (06:52→23:05)
[2018-10-20 07:30] VITALS: BP 122/80
[2018-10-20] MEDS ORDERED: CLINDAMYCIN 600MG IV 50 ML IV ONE (08:46)
[2018-10-20] MEDS ORDERED: MIDAZOLAM HCL 1MG/1ML-2 ML VIAL ONE (09:02)
[2018-10-20] MEDS ORDERED: PROPOFOL 10 MG/ML 20 ML IV ONE (09:02)
[2018-10-20] MEDS ORDERED: fentaNYL CITRATE 100 MCG/2 ML VL ONE (09:02)
[2018-10-20] MEDS ORDERED: ONDANSETRON HCL 4 MG/2 ML VIAL IV PRN (09:30)
[2018-10-20] MEDS: PANTOPRAZOLE 40 MG TAB PO SCH (10:00)
[2018-10-20 12:00] VITALS: BP 101/68
[2018-10-20 16:21] LABS: Hematocrit 22.8 % (36.0-46.0); Hemoglobin 7.5 g/dL (12.2-16.2)
[2018-10-20 16:30] VITALS: BP 102/64
[2018-10-20 20:00] VITALS: BP 104/63
[2018-10-20] MEDS: ATORVASTATIN CALCIUM 40 MG PO SCH (21:17)
[2018-10-20] MEDS: TEMAZEPAM 15 MG CAP PO PRN (22:22)
[2018-10-21] VITALS: BP 97/57
[2018-10-21 04:00] VITALS: BP 123/86
[2018-10-21] MEDS: MORPHINE SULFATE 4 MG/ML SYR/VIAL IV PRN (05:07)
[2018-10-21 05:50] LABS: Basophils # (auto) 0 uL; Eosinophils # (auto) 0.3 uL; Lymphocytes # (auto) 1.5 uL; Monocytes # (auto) 0.4 uL
[2018-10-21 05:53] LABS: Basophils % (auto) 0.5 % (0.0-2.0); Eosinophils % (auto) 4.7 % (0.0-7.0); Mean Corpuscular Hemoglobin 27.9 pg (28.0-32.0); Mean Corpuscular Hgb Conc. 33.2 g/dL (32.0-36.0); Mean Corpuscular Volume 84.1 fL (80.0-100.0); Monocytes % (auto) 6.7 % (0.0-12.0); Neutrophils # (auto) 3.8 uL; Neutrophils % (auto) 63.1 % (37.0-80.0); Platelet Count (auto) 316 10^3/uL (140-450); Red Blood Cells 2.86 10^6/uL (4.0-5.20); Red Cell Distribution Width 16.1 % (11.8-14.3)
[2018-10-21 08:00] VITALS: BP 111/74
[2018-10-21] MEDS: ACETAMINOPHEN 500 MG TAB PO PRN (08:57)
[2018-10-21] MEDS: PANTOPRAZOLE 40 MG TAB PO SCH (08:57)
[2018-10-21 11:56] VITALS: BP 121/90
[2018-10-21 13:00] VITALS: BP 121/90
== END 2018-10-21 14:45 | disposition home or self-care (01) | DRG 744 ==
LOC: ER 13:35 → OVERFLOW 15:35 → ICU WEST 18:06 → DOU IN ICU 10-18 11:23
PROVIDERS: ADMIT Internal Medicine; ATTEND Internal Medicine
PROC: 30233N1 Transfusion of Nonautologous Red Blood Cells into Peripheral Vein, Percutaneous Approach (ICD-10-PCS; 2018-10-17)
PROC: 0UJD8ZZ Inspection of Uterus and Cervix, Via Natural or Artificial Opening Endoscopic (ICD-10-PCS; 2018-10-20)
PROC: 0UDB7ZZ Extraction of Endometrium, Via Natural or Artificial Opening (ICD-10-PCS; principal; 2018-10-20 09:00)
DX: D25.9 Leiomyoma of uterus, unspecified (principal); I42.9 Cardiomyopathy, unspecified; I50.22 Chronic systolic (congestive) heart failure; D62 Acute posthemorrhagic anemia; N95.0 Postmenopausal bleeding; E11.9 Type 2 diabetes mellitus without complications; E66.9 Obesity, unspecified; E78.5 Hyperlipidemia, unspecified; I11.0 Hypertensive heart disease with heart failure; I25.2 Old myocardial infarction; I25.10 Atherosclerotic heart disease of native coronary artery without angina pectoris; N81.10 Cystocele, unspecified; N81.6 Rectocele; Z79.02 Long term (current) use of antithrombotics/antiplatelets; Z79.82 Long term (current) use of aspirin; Z82.3 Family history of stroke; Z82.49 Family history of ischemic heart disease and other diseases of the circulatory system; Z83.3 Family history of diabetes mellitus; Z95.5 Presence of coronary angioplasty implant and graft; Z68.38 Body mass index [BMI] 38.0-38.9, adult; M19.90 Unspecified osteoarthritis, unspecified site; M10.9 Gout, unspecified; Z90.49 Acquired absence of other specified parts of digestive tract
CPT/HCPCS: 36415; 71045; 76856; 80048; 80053; 82962; 83036; 83735; 84484; 85014; 85018; 85025; 85045; 85610; 85730; 86850; 86900; 86901; 86920; 87081; 93005; 94761; 96360; G0378; J2250; J2704; J3490

== ENCOUNTER 2018-11-12 01:03 | Emergency (ER) | payer SELFPAY ==
[~2018-11-12] VITALS: Ht 162.6 cm; Wt 98.0 kg
[2018-11-12 02:24] LABS: Basophils # (auto) 0 uL; Basophils % (auto) 0.4 % (0.0-2.0); Eosinophils # (auto) 0.3 uL; Eosinophils % (auto) 3.4 % (0.0-7.0); Hematocrit 25.5 % (36.0-46.0); Hemoglobin 8.2 g/dL (12.2-16.2); Lymphocytes # (auto) 1.3 uL; Lymphocytes % (auto) 14.6 % (10.0-50.0); Mean Corpuscular Hemoglobin 25.5 pg (28.0-32.0); Mean Corpuscular Volume 79.6 fL (80.0-100.0); Monocytes # (auto) 0.5 uL; Monocytes % (auto) 5.7 % (0.0-12.0); Neutrophils % (auto) 75.9 % (37.0-80.0); Nucleated Red Blood Cells % 0.1 %; Platelet Count (auto) 376 10^3/uL (140-450); White Blood Cell 9.2 10^3/uL (4.4-10.8)
[2018-11-12 02:44] LABS: Alanine Aminotransferase 22 U/L (13-56); Albumin 3.1 g/dL (3.4-5.0); Anion Gap 10 (5-15); BUN/Creatinine Ratio 20.2; Blood Urea Nitrogen 20 mg/dL (7-18); Calcium 8.5 mg/dL (8.5-10.1); Carbon Dioxide 22 mmol/L (21-32); Chloride 106 mmol/L (98-107); GFR African American 75 mL/min; GFR Non-African American 62 mL/min; Glucose 125 mg/dL (74-106); Potassium 3.8 mmol/L (3.5-5.1); Sodium 138 mmol/L (136-145)
[2018-11-12 02:47] LABS: INR 0.93 (0.9-1.15); Partial Thromboplastin Time 25.2 sec (23.78-33.04)
[2018-11-12 02:50] LABS: Alkaline Phosphatase 105 U/L (45-117); Aspartate Aminotransferase 19 U/L (15-37); Bilirubin, Total 0.2 mg/dL (0.2-1.0); Total Protein 7.6 g/dL (6.4-8.2)
[2018-11-12] MEDS ORDERED: SODIUM CHLORIDE 0.9% 1,000 ML IV ONE (02:52)
[2018-11-12 03:12] LABS: Thyroid Stimulating Hormone 1.9 uIU/mL (0.358-3.74)
[2018-11-12 07:31] LABS: Hemoglobin 7.1 g/dL (12.2-16.2)
[2018-11-12 07:33] LABS: Hematocrit 22.6 % (36.0-46.0)
[2018-11-12 09:30] VITALS: BP 99/69
[2018-11-12 09:30] LABS: Urine Bacteria NONE SEEN /hpf (None Seen); Urine Blood TRACE /uL (Negative); Urine Mucus FEW (None Seen); Urine Specific Gravity 1.015 (1.001-1.035); Urine WBC 1 /hpf (0 - 5)
[2018-11-12 09:44] VITALS: BP 103/66
[2018-11-12 11:25] VITALS: BP 116/54
[2018-11-12 11:44] VITALS: BP 106/76
== END 2018-11-12 11:54 | disposition home or self-care (01) ==
LOC: ER 01:03
DX: N93.8 Other specified abnormal uterine and vaginal bleeding (principal); I11.0 Hypertensive heart disease with heart failure; I50.9 Heart failure, unspecified; I25.2 Old myocardial infarction; M10.9 Gout, unspecified; Z98.61 Coronary angioplasty status
CPT/HCPCS: 36415; 36430; 71045; 80053; 81001; 83735; 84443; 84484; 84702; 85014; 85018; 85025; 85610; 85730; 86850; 86900; 86901; 86920; 93005; 94761; 96360; 96361; 99285; J7030; P9016

== ENCOUNTER → 2018-12-10 | Outpatient (CLI) | payer MEDICAID | END | disposition home or self-care (01) | LOC: Rad HDHVI 15:34 | PROVIDERS: ATTEND Internal Medicine | DX: I11.0 Hypertensive heart disease with heart failure (principal); I50.9 Heart failure, unspecified; I42.9 Cardiomyopathy, unspecified | CPT/HCPCS: 93306 ==

== ENCOUNTER 2018-12-27 16:22 | Emergency (ER) | payer MEDICAID ==
[~2018-12-27] VITALS: Ht 162.6 cm; Wt 98.0 kg
[2018-12-27 17:34] LABS: Basophils # (auto) 0 uL; Eosinophils # (auto) 0.6 uL; Lymphocytes # (auto) 1.2 uL; Mean Corpuscular Hgb Conc. 30.5 g/dL (32.0-36.0); Monocytes # (auto) 0.6 uL; White Blood Cell 6.2 10^3/uL (4.4-10.8)
[2018-12-27 17:35] LABS: Basophils % (auto) 0.8 % (0.0-2.0); Eosinophils % (auto) 9.5 % (0.0-7.0); Hematocrit 27.3 % (36.0-46.0); Hemoglobin 8.3 g/dL (12.2-16.2); Lymphocytes % (auto) 20.1 % (10.0-50.0); Mean Corpuscular Hemoglobin 22.5 pg (28.0-32.0); Mean Corpuscular Volume 73.9 fL (80.0-100.0); Monocytes % (auto) 9.2 % (0.0-12.0); Neutrophils # (auto) 3.7 uL; Neutrophils % (auto) 60.4 % (37.0-80.0); Nucleated Red Blood Cells % 0.1 %; Platelet Count (auto) 403 10^3/uL (140-450); Red Cell Distribution Width 18.9 % (11.8-14.3)
[2018-12-27 18:04] LABS: Albumin 3.3 g/dL (3.4-5.0); Calcium 8.3 mg/dL (8.5-10.1); Potassium 3.7 mmol/L (3.5-5.1)
[2018-12-27 18:07] LABS: Bilirubin, Total 0.2 mg/dL (0.2-1.0); Total Protein 8.2 g/dL (6.4-8.2)
[2018-12-27 21:00] VITALS: BP 110/68
== END 2018-12-27 21:32 | disposition home or self-care (01) ==
LOC: ER 16:28
DX: D64.9 Anemia, unspecified (principal); I11.0 Hypertensive heart disease with heart failure; I50.9 Heart failure, unspecified; I25.2 Old myocardial infarction; Z90.49 Acquired absence of other specified parts of digestive tract; Z98.61 Coronary angioplasty status
CPT/HCPCS: 36415; 80053; 85025; 93005

== ENCOUNTER → 2019-04-01 | Outpatient (CLI) | payer MEDICAID | END | disposition home or self-care (01) | LOC: Rad HDHVI 10:05 | PROVIDERS: ATTEND Internal Medicine | DX: I42.9 Cardiomyopathy, unspecified (principal); I25.2 Old myocardial infarction | CPT/HCPCS: 93306 ==

== ENCOUNTER → 2019-08-29 | Outpatient (CLI) | payer MEDICAID | END | disposition home or self-care (01) | LOC: Rad HDHVI 11:00 | PROVIDERS: ATTEND Internal Medicine | DX: I08.1 Rheumatic disorders of both mitral and tricuspid valves (principal); I11.0 Hypertensive heart disease with heart failure; I50.9 Heart failure, unspecified; Z95.5 Presence of coronary angioplasty implant and graft | CPT/HCPCS: 93306 ==

== ENCOUNTER → 2019-12-27 | Outpatient (CLI) | payer MEDICAID ==
[~2019-12-27] VITALS: Ht 162.6 cm; Wt 101.6 kg
[~2019-12-27] MED LIST changes: +ADENOSINE 85 MG in GIVE UN-DILUTED 0 ML IV ONE; +ADENOSINE 90 MG/30 ML INJ IV ONE
== END | disposition home or self-care (01) ==
LOC: Rad HDHVI 09:00
PROVIDERS: ATTEND Internal Medicine
DX: I25.10 Atherosclerotic heart disease of native coronary artery without angina pectoris (principal); I25.2 Old myocardial infarction; I10 Essential (primary) hypertension; E78.00 Pure hypercholesterolemia, unspecified; R06.02 Shortness of breath; Z82.49 Family history of ischemic heart disease and other diseases of the circulatory system; Z95.5 Presence of coronary angioplasty implant and graft
CPT/HCPCS: 78452; 93005; 96374; 96375; A9500; J0153

== ENCOUNTER → 2020-02-22 | Outpatient (CLI) | payer MEDICAID ==
[~2020-02-22] MED LIST changes: -ADENOSINE 85 MG in GIVE UN-DILUTED 0 ML IV ONE; -ADENOSINE 90 MG/30 ML INJ IV ONE
== END | disposition home or self-care (01) ==
LOC: Rad HDHVI 07:54
PROVIDERS: ATTEND Internal Medicine
DX: I08.1 Rheumatic disorders of both mitral and tricuspid valves (principal); I25.10 Atherosclerotic heart disease of native coronary artery without angina pectoris; I50.9 Heart failure, unspecified; J42 Unspecified chronic bronchitis
CPT/HCPCS: 93306

== ENCOUNTER → 2020-07-24 | Outpatient (CLI) | payer MEDICAID | END | disposition home or self-care (01) | LOC: Rad HDHVI 13:11 | PROVIDERS: ATTEND Internal Medicine | DX: I08.1 Rheumatic disorders of both mitral and tricuspid valves (principal); I25.10 Atherosclerotic heart disease of native coronary artery without angina pectoris; I42.9 Cardiomyopathy, unspecified; I10 Essential (primary) hypertension | CPT/HCPCS: 93306 ==

== ENCOUNTER → 2020-07-31 | Outpatient (CLI) | payer MEDICAID ==
[~2020-07-31] VITALS: Ht 162.6 cm; Wt 98.4 kg
[~2020-07-31] MED LIST changes: +ADENOSINE 83 MG in GIVE UN-DILUTED 0 ML IV ONE; +ADENOSINE 90 MG/30 ML INJ IV ONE
== END | disposition home or self-care (01) ==
LOC: Rad HDHVI 08:34
PROVIDERS: ATTEND Internal Medicine
DX: E11.22 Type 2 diabetes mellitus with diabetic chronic kidney disease (principal); I12.9 Hypertensive chronic kidney disease with stage 1 through stage 4 chronic kidney disease, or unspecified chronic kidney disease; N18.9 Chronic kidney disease, unspecified; I42.9 Cardiomyopathy, unspecified; I25.2 Old myocardial infarction; I25.10 Atherosclerotic heart disease of native coronary artery without angina pectoris; E78.5 Hyperlipidemia, unspecified; G47.33 Obstructive sleep apnea (adult) (pediatric); Z82.49 Family history of ischemic heart disease and other diseases of the circulatory system
CPT/HCPCS: 78452; 93005; 96374; 96375; A9500; J0153

== ENCOUNTER 2020-11-01 18:09 | Inpatient (IN) | payer MEDICAID ==
[~2020-11-01] VITALS: Ht 172.7 cm; Wt 90.3 kg
[~2020-11-01 18:09] MED LIST changes: -ADENOSINE 83 MG in GIVE UN-DILUTED 0 ML IV ONE; -ADENOSINE 90 MG/30 ML INJ IV ONE
[2020-11-01] MEDS ORDERED: DOXYCYCLINE 100MG/250ML 250 ML IV ONE (19:45)
[2020-11-01] MEDS ORDERED: DexAMETHasone SOD PHOS 10MG/1ML VIAL INJ IV ONE (19:45)
[2020-11-01] MEDS: DOXYCYCLINE 100MG/250ML 250 ML IV SCH (20:45)
[2020-11-01] MEDS ORDERED: NITROGLYCERIN 0.4 MG SL TAB SL PRN (20:45)
[2020-11-01] MEDS ORDERED: LABETALOL HCL 5 MG/ML 4ML SYRINGE IV PRN (20:45)
[2020-11-01] MEDS ORDERED: MORPHINE SULF INJ 2 MG/ML SYRINGE 1ML IV PRN (20:45)
[2020-11-01] MEDS ORDERED: ACETAMINOPHEN 500 MG TAB PO PRN (20:45)
[2020-11-01] MEDS ORDERED: DOCUSATE CALCIUM 240 MG CAP PO PRN (20:45)
[2020-11-01 21:02] LABS: Basophils # (auto) 0 10 ^3/uL (0-0.2); Basophils % (auto) 0.4 % (0.0-2.0); Eosinophils # (auto) 0 10 ^3/uL (0-0.8); Hemoglobin 12.2 g/dL (12.2-16.2); Lymphocytes # (auto) 0.3 10 ^3/uL (0.4-5.4); Monocytes # (auto) 0.2 10 ^3/uL (0-1.3)
[2020-11-01 21:05] LABS: Eosinophils % (auto) 0.8 % (0.0-7.0); Hematocrit 35.3 % (36.0-46.0); Lymphocytes % (auto) 4.4 % (10.0-50.0); Mean Corpuscular Hemoglobin 31.9 pg (28.0-32.0); Mean Corpuscular Hgb Conc. 34.7 g/dL (32.0-36.0); Mean Corpuscular Volume 91.8 fL (80.0-100.0); Neutrophils # (auto) 5.2 10 ^3/uL (1.6-8.6); Neutrophils % (auto) 90.4 % (37.0-80.0); Platelet Count (auto) 546 10^3/uL (140-450); Red Blood Cells 3.84 10^6/uL (4.0-5.20); White Blood Cell 5.8 10^3/uL (4.4-10.8)
[2020-11-01 21:19] LABS: Chloride 101 mmol/L (98-107); Potassium 4.8 mmol/L (3.5-5.1); Sodium 132 mmol/L (136-145)
[2020-11-01 21:30] LABS: Alanine Aminotransferase 38 U/L (13-56); Albumin 2.7 g/dL (3.4-5.0); Alkaline Phosphatase 111 U/L (45-117); Anion Gap 13 (5-15); Aspartate Aminotransferase 34 U/L (15-37); Bilirubin, Total 0.3 mg/dL (0.2-1.0); Calcium 9.4 mg/dL (8.5-10.1); Carbon Dioxide 18 mmol/L (21-32); GFR African American 4 mL/min; GFR Non-African American 3 mL/min; Glucose 153 mg/dL (74-106); Total Protein 8.9 g/dL (6.4-8.2)
[2020-11-01 21:35] LABS: Blood Urea Nitrogen 85 mg/dL (7-18)
[2020-11-01] MEDS: BUDESONIDE (INHALATION) 180 MCG IH IN SCH (22:00)
[2020-11-01] MEDS: SODIUM CHLORIDE 0.9% 1,000 ML IV SCH (22:10)
[2020-11-02] MEDS: CARVEDILOL 3.125 MG TAB PO SCH ×3 (00:41→23:57)
[2020-11-02] MEDS: ATORVASTATIN 20 MG TAB PO SCH ×2 (00:41→22:48)
[2020-11-02] MEDS: ENOXAPARIN SOD 40 MG/0.4 ML SYRINGE SC SCH ×2 (00:42→09:36)
[2020-11-02] MEDS: BUDESONIDE (INHALATION) 180 MCG IH IN SCH ×2 (06:14→21:33)
[2020-11-02 06:43] LABS: Basophils # (auto) 0 10 ^3/uL (0-0.2); Basophils % (auto) 0.3 % (0.0-2.0); Eosinophils # (auto) 0 10 ^3/uL (0-0.8); Eosinophils % (auto) 0.1 % (0.0-7.0); Hematocrit 35.7 % (36.0-46.0); Hemoglobin 12.2 g/dL (12.2-16.2); Lymphocytes # (auto) 0.5 10 ^3/uL (0.4-5.4); Lymphocytes % (auto) 6.4 % (10.0-50.0); Mean Corpuscular Hemoglobin 31.3 pg (28.0-32.0); Mean Corpuscular Hgb Conc. 34.3 g/dL (32.0-36.0); Mean Corpuscular Volume 91.5 fL (80.0-100.0); Monocytes # (auto) 0.5 10 ^3/uL (0-1.3); Monocytes % (auto) 6.8 % (0.0-12.0); Neutrophils # (auto) 6.2 10 ^3/uL (1.6-8.6); Neutrophils % (auto) 86.4 % (37.0-80.0); Nucleated Red Blood Cells % 0.3 %; Platelet Count (auto) 626 10^3/uL (140-450); Red Blood Cells 3.91 10^6/uL (4.0-5.20); Red Cell Distribution Width 15.8 % (11.8-14.3); White Blood Cell 7.2 10^3/uL (4.4-10.8)
[2020-11-02 06:50] LABS: Potassium 3.9 mmol/L (3.5-5.1)
[2020-11-02 06:56] LABS: Albumin 2.9 g/dL (3.4-5.0); Bilirubin, Total 0.4 mg/dL (0.2-1.0); Calcium 9.7 mg/dL (8.5-10.1); Total Protein 9.6 g/dL (6.4-8.2)
[2020-11-02] MEDS: DOXYCYCLINE 100MG/250ML 250 ML IV SCH ×2 (08:44→22:47)
[2020-11-02] MEDS: ASPirin 81 mg TAB PO SCH (09:20)
[2020-11-02] MEDS: ASCORBIC ACID 1,000 MG TAB PO SCH (09:36)
[2020-11-02] MEDS: CHOLECALCIFEROL (VITD3) 2,000 UNIT CAP PO SCH (09:36)
[2020-11-02] MEDS: ZINC SULFATE 220mg CAP or TAB PO SCH (09:36)
[2020-11-02] MEDS: CLOPIDOGREL BISULFATE 75 MG TAB PO SCH (09:36)
[2020-11-02] MEDS: SODIUM CHLORIDE 0.9% 1,000 ML IV SCH ×2 (09:36→23:25)
[2020-11-02] MEDS ORDERED: PANTOPRAZOLE 40 MG TAB PO SCH (10:00)
[2020-11-02] MEDS ORDERED: LISINOPRIL 5 MG TAB PO SCH (10:00)
[2020-11-02] MEDS: ONDANSETRON HCL 4 MG/2 ML VIAL IV PRN (10:19)
[2020-11-02] MEDS ORDERED: DEXTROSE (50%) 50ML SYRG IV ONE (11:45)
[2020-11-02] MEDS ORDERED: DEXTROSE (50%) 50ML SYRG IV SCH (12:45)
[2020-11-02] MEDS: ACCU-CHEK COMFORT CURVE STRIP VI SCH ×2 (17:44→22:48)
[2020-11-02] MEDS: InsuLIN REG 1unit/0.01ml Soln (100units/ml) SC SCH ×2 (17:46→22:00)
[2020-11-02 22:00] VITALS: BP 104/69
[2020-11-02] MEDS: FAMOTIDINE (10MG/ML) 2ML VL IV SCH (22:47)
[2020-11-03] VITALS: BP 103/67
[2020-11-03] MEDS: traMADol HCL 50 MG TAB PO PRN ×2 (00:55→07:23)
[2020-11-03] MEDS: InsuLIN REG 1unit/0.01ml Soln (100units/ml) SC SCH ×4 (07:00→22:00)
[2020-11-03] MEDS: ACCU-CHEK COMFORT CURVE STRIP VI SCH ×4 (07:22→22:25)
[2020-11-03] MEDS: BUDESONIDE (INHALATION) 180 MCG IH IN SCH ×2 (07:27→22:00)
[2020-11-03] MEDS: ALBUTEROL SULF HFA 90MCG INH 200DOSE IN PRN (07:27)
[2020-11-03 08:00] VITALS: BP 94/75
[2020-11-03 08:37] LABS: Basophils # (auto) 0 10 ^3/uL (0-0.2); Basophils % (auto) 0.4 % (0.0-2.0); Eosinophils # (auto) 0.1 10 ^3/uL (0-0.8); Eosinophils % (auto) 0.9 % (0.0-7.0); Hematocrit 35.4 % (36.0-46.0); Hemoglobin 11.9 g/dL (12.2-16.2); Lymphocytes # (auto) 0.6 10 ^3/uL (0.4-5.4); Lymphocytes % (auto) 7.4 % (10.0-50.0); Mean Corpuscular Hemoglobin 30.9 pg (28.0-32.0); Mean Corpuscular Hgb Conc. 33.7 g/dL (32.0-36.0); Mean Corpuscular Volume 91.9 fL (80.0-100.0); Monocytes # (auto) 0.7 10 ^3/uL (0-1.3); Monocytes % (auto) 9.4 % (0.0-12.0); Neutrophils # (auto) 6.1 10 ^3/uL (1.6-8.6); Neutrophils % (auto) 81.9 % (37.0-80.0); Nucleated Red Blood Cells % 0.1 %; Platelet Count (auto) 623 10^3/uL (140-450); Red Blood Cells 3.85 10^6/uL (4.0-5.20); Red Cell Distribution Width 15.5 % (11.8-14.3); White Blood Cell 7.5 10^3/uL (4.4-10.8)
[2020-11-03 08:46] LABS: INR 1.07 (0.9-1.15); Partial Thromboplastin Time 34.5 sec (23.0-31.2)
[2020-11-03 09:11] LABS: BUN/Creatinine Ratio 7.6; Calcium 9.9 mg/dL (8.5-10.1); Potassium 4.4 mmol/L (3.5-5.1)
[2020-11-03] MEDS: ENOXAPARIN SOD 40 MG/0.4 ML SYRINGE SC SCH (10:00)
[2020-11-03] MEDS: CARVEDILOL 3.125 MG TAB PO SCH ×2 (10:00→22:41)
[2020-11-03] MEDS: DOXYCYCLINE 100MG/250ML 250 ML IV SCH ×2 (12:05→20:54)
[2020-11-03] MEDS: DexAMETHasone SOD PHOS 10MG/1ML VIAL INJ IV SCH (12:05)
[2020-11-03] MEDS: ZINC SULFATE 220mg CAP or TAB PO SCH (12:06)
[2020-11-03] MEDS: FAMOTIDINE (10MG/ML) 2ML VL IV SCH ×2 (12:06→23:40)
[2020-11-03] MEDS: CLOPIDOGREL BISULFATE 75 MG TAB PO SCH (12:06)
[2020-11-03] MEDS: ASCORBIC ACID 1,000 MG TAB PO SCH (12:06)
[2020-11-03] MEDS: CHOLECALCIFEROL (VITD3) 2,000 UNIT CAP PO SCH (12:06)
[2020-11-03] MEDS: ASPirin 81 mg TAB PO SCH (12:06)
[2020-11-03] MEDS: ONDANSETRON HCL 4 MG/2 ML VIAL IV PRN (12:28)
[2020-11-03] MEDS: SODIUM CHLORIDE 0.9% 1,000 ML IV SCH ×2 (15:16→23:57)
[2020-11-03 16:00] VITALS: BP 102/72
[2020-11-03] MEDS ORDERED: FUROSEMIDE 100 MG/10ML VIAL IV ONE (19:30)
[2020-11-03 19:36] LABS: Urine Bacteria FEW /hpf (None Seen); Urine Blood 2+ /uL (Negative); Urine Specific Gravity 1.006 (1.001-1.035); Urine WBC 3 /hpf (0 - 5)
[2020-11-03 19:45] LABS: Alcohol, Urine < 3.0 mg/dL (0-10); Amphetamine Screen, Urine NEGATIVE (NEGATIVE); Barbiturate Scree,Urine NEGATIVE (NEGATIVE); Benzodiazephine Screen, Urine NEGATIVE (NEGATIVE); Cannabinoid Screen, Urine NEGATIVE (NEGATIVE); Cocaine Screen, Urine NEGATIVE (NEGATIVE); Opiate Scree,Urine NEGATIVE (NEGATIVE)
[2020-11-03 19:51] LABS: Phencyclidine Screen, Urine NEGATIVE (NEGATIVE)
[2020-11-03 20:05] LABS: Protein, Urine 87.3 mg/dL (0.0-11.9)
[2020-11-03] MEDS: ATORVASTATIN 20 MG TAB PO SCH (22:25)
[2020-11-04] VITALS: BP 115/85
[2020-11-04] MEDS: LORazepam 0.5 MG TAB PO PRN ×2 (00:14→22:21)
[2020-11-04] MEDS: ONDANSETRON HCL 4 MG/2 ML VIAL IV PRN ×2 (04:32→16:02)
[2020-11-04] MEDS: BUDESONIDE (INHALATION) 180 MCG IH IN SCH ×3 (06:24→21:10)
[2020-11-04] MEDS: ALBUTEROL SULF HFA 90MCG INH 200DOSE IN PRN ×2 (06:24→21:25)
[2020-11-04] MEDS: ACCU-CHEK COMFORT CURVE STRIP VI SCH ×4 (06:27→22:21)
[2020-11-04] MEDS: InsuLIN REG 1unit/0.01ml Soln (100units/ml) SC SCH ×4 (06:27→22:22)
[2020-11-04 08:00] VITALS: BP 96/58
[2020-11-04 08:30] LABS: Calcium 9.6 mg/dL (8.5-10.1); Potassium 4.1 mmol/L (3.5-5.1)
[2020-11-04 08:34] LABS: BUN/Creatinine Ratio 7.4; Phosphorus 7.8 mg/dL (2.5-4.90)
[2020-11-04] MEDS: DOXYCYCLINE 100MG/250ML 250 ML IV SCH ×2 (08:55→21:08)
[2020-11-04] MEDS: ZINC SULFATE 220mg CAP or TAB PO SCH (08:56)
[2020-11-04] MEDS: DexAMETHasone SOD PHOS 10MG/1ML VIAL INJ IV SCH (08:56)
[2020-11-04] MEDS: SODIUM CHLORIDE 0.9% 1,000 ML IV SCH (08:56)
[2020-11-04] MEDS: ASPirin 81 mg TAB PO SCH (08:56)
[2020-11-04] MEDS: FAMOTIDINE (10MG/ML) 2ML VL IV SCH ×2 (08:56→22:20)
[2020-11-04] MEDS: CLOPIDOGREL BISULFATE 75 MG TAB PO SCH (08:56)
[2020-11-04] MEDS: ASCORBIC ACID 1,000 MG TAB PO SCH (08:57)
[2020-11-04] MEDS: CHOLECALCIFEROL (VITD3) 2,000 UNIT CAP PO SCH (08:57)
[2020-11-04] MEDS: ENOXAPARIN SOD 40 MG/0.4 ML SYRINGE SC SCH (08:57)
[2020-11-04] MEDS: CARVEDILOL 3.125 MG TAB PO SCH ×2 (09:08→22:00)
[2020-11-04 16:00] VITALS: BP 96/58
[2020-11-04] MEDS: SODIUM BICARB 50ML SYR 75 ML in SOD CHL 0.45% 1,000 ML IV SCH (16:01)
[2020-11-04] MEDS: traMADol HCL 50 MG TAB PO PRN (16:01)
[2020-11-04] MEDS: ATORVASTATIN 20 MG TAB PO SCH (22:21)
[2020-11-05] VITALS (8 sets, daily range): BP systolic 100–118; BP diastolic 62–78
[2020-11-05] MEDS: SODIUM BICARB 50ML SYR 75 ML in SOD CHL 0.45% 1,000 ML IV SCH ×3 (01:15→22:45)
[2020-11-05] MEDS: ACCU-CHEK COMFORT CURVE STRIP VI SCH ×4 (06:18→22:13)
[2020-11-05] MEDS: InsuLIN REG 1unit/0.01ml Soln (100units/ml) SC SCH ×4 (06:19→22:00)
[2020-11-05] MEDS: ALBUTEROL SULF HFA 90MCG INH 200DOSE IN PRN (06:22)
[2020-11-05] MEDS: BUDESONIDE (INHALATION) 180 MCG IH IN SCH ×2 (06:22→22:00)
[2020-11-05 07:19] LABS: Basophils # (auto) 0 10 ^3/uL (0-0.2); Eosinophils # (auto) 0 10 ^3/uL (0-0.8); Lymphocytes # (auto) 0.4 10 ^3/uL (0.4-5.4); Monocytes # (auto) 0.3 10 ^3/uL (0-1.3); Monocytes % (auto) 4.6 % (0.0-12.0); Neutrophils % (auto) 88.6 % (37.0-80.0); Nucleated Red Blood Cells % 0.1 %; Red Blood Cells 3.55 10^6/uL (4.0-5.20)
[2020-11-05 07:24] LABS: Basophils % (auto) 0.1 % (0.0-2.0); Hematocrit 32.6 % (36.0-46.0); Hemoglobin 11.1 g/dL (12.2-16.2); Lymphocytes % (auto) 6.7 % (10.0-50.0); Mean Corpuscular Hemoglobin 31.2 pg (28.0-32.0); Mean Corpuscular Volume 91.8 fL (80.0-100.0); Neutrophils # (auto) 5.8 10 ^3/uL (1.6-8.6); Platelet Count (auto) 530 10^3/uL (140-450); Red Cell Distribution Width 15.7 % (11.8-14.3); White Blood Cell 6.5 10^3/uL (4.4-10.8)
[2020-11-05 07:37] LABS: BUN/Creatinine Ratio 8.4; Calcium 9.3 mg/dL (8.5-10.1); Potassium 4.2 mmol/L (3.5-5.1)
[2020-11-05] MEDS: ENOXAPARIN SOD 40 MG/0.4 ML SYRINGE SC SCH (10:00)
[2020-11-05] MEDS: CHOLECALCIFEROL (VITD3) 2,000 UNIT CAP PO SCH (10:00)
[2020-11-05] MEDS: DOXYCYCLINE 100MG/250ML 250 ML IV SCH ×2 (10:02→22:11)
[2020-11-05] MEDS: FAMOTIDINE (10MG/ML) 2ML VL IV SCH ×2 (10:02→22:12)
[2020-11-05] MEDS: ASPirin 81 mg TAB PO SCH (10:02)
[2020-11-05] MEDS: DexAMETHasone SOD PHOS 10MG/1ML VIAL INJ IV SCH (10:02)
[2020-11-05] MEDS: CLOPIDOGREL BISULFATE 75 MG TAB PO SCH (10:03)
[2020-11-05] MEDS: ZINC SULFATE 220mg CAP or TAB PO SCH (10:03)
[2020-11-05] MEDS: ASCORBIC ACID 1,000 MG TAB PO SCH (10:03)
[2020-11-05] MEDS: CARVEDILOL 3.125 MG TAB PO SCH ×2 (10:04→22:12)
[2020-11-05] MEDS ORDERED: FUROSEMIDE 100 MG/10ML VIAL IV ONE (14:30)
[2020-11-05] MEDS ORDERED: FUROSEMIDE 20 MG/2 ML VIAL IV ONE (14:45)
[2020-11-05] MEDS: ATORVASTATIN 20 MG TAB PO SCH (22:12)
[2020-11-05] MEDS: LORazepam 0.5 MG TAB PO PRN (23:38)
[2020-11-06] MEDS: ACCU-CHEK COMFORT CURVE STRIP VI SCH ×4 (06:00→21:24)
[2020-11-06] MEDS: InsuLIN REG 1unit/0.01ml Soln (100units/ml) SC SCH ×4 (06:00→21:24)
[2020-11-06 08:00] VITALS: BP 113/63
[2020-11-06 08:09] LABS: Basophils # (auto) 0 10 ^3/uL (0-0.2); Eosinophils # (auto) 0 10 ^3/uL (0-0.8); Hemoglobin 11.7 g/dL (12.2-16.2); Lymphocytes # (auto) 0.6 10 ^3/uL (0.4-5.4); Monocytes # (auto) 0.5 10 ^3/uL (0-1.3); White Blood Cell 8.9 10^3/uL (4.4-10.8)
[2020-11-06 08:11] LABS: Basophils % (auto) 0.2 % (0.0-2.0); Hematocrit 35.4 % (36.0-46.0); Lymphocytes % (auto) 6.8 % (10.0-50.0); Mean Corpuscular Hemoglobin 30.5 pg (28.0-32.0); Mean Corpuscular Volume 92.4 fL (80.0-100.0); Monocytes % (auto) 5.4 % (0.0-12.0); Neutrophils # (auto) 7.8 10 ^3/uL (1.6-8.6); Neutrophils % (auto) 87.6 % (37.0-80.0); Platelet Count (auto) 639 10^3/uL (140-450); Red Blood Cells 3.83 10^6/uL (4.0-5.20); Red Cell Distribution Width 15.9 % (11.8-14.3)
[2020-11-06 08:14] LABS: Calcium 9.8 mg/dL (8.5-10.1); Potassium 4.2 mmol/L (3.5-5.1)
[2020-11-06 08:22] LABS: BUN/Creatinine Ratio 9.1; CRP High Sensitivity 2.15 mg/dL (< 0.3)
[2020-11-06 08:30] LABS: INR 1.05 (0.9-1.15); Partial Thromboplastin Time 32.6 sec (23.0-31.2)
[2020-11-06] MEDS: BUDESONIDE (INHALATION) 180 MCG IH IN SCH ×3 (10:00→22:00)
[2020-11-06] MEDS: DOXYCYCLINE 100MG/250ML 250 ML IV SCH ×2 (10:34→20:16)
[2020-11-06] MEDS: CARVEDILOL 3.125 MG TAB PO SCH ×2 (10:35→21:24)
[2020-11-06] MEDS: ASPirin 81 mg TAB PO SCH (10:35)
[2020-11-06] MEDS: ZINC SULFATE 220mg CAP or TAB PO SCH (10:35)
[2020-11-06] MEDS: DexAMETHasone SOD PHOS 10MG/1ML VIAL INJ IV SCH (10:35)
[2020-11-06] MEDS: CLOPIDOGREL BISULFATE 75 MG TAB PO SCH (10:36)
[2020-11-06] MEDS: ASCORBIC ACID 1,000 MG TAB PO SCH (10:37)
[2020-11-06] MEDS: ENOXAPARIN SOD 40 MG/0.4 ML SYRINGE SC SCH (10:37)
[2020-11-06] MEDS: CHOLECALCIFEROL (VITD3) 2,000 UNIT CAP PO SCH (10:37)
[2020-11-06] MEDS: FAMOTIDINE (10MG/ML) 2ML VL IV SCH ×2 (13:46→21:23)
[2020-11-06 16:18] VITALS: BP 111/77
[2020-11-06] MEDS: ONDANSETRON HCL 4 MG/2 ML VIAL IV PRN (17:15)
[2020-11-06] MEDS: SODIUM BICARB 50ML SYR 75 ML in SOD CHL 0.45% 1,000 ML IV SCH ×2 (17:26→20:15)
[2020-11-06] MEDS: ALBUTEROL SULF HFA 90MCG INH 200DOSE IN PRN (20:15)
[2020-11-06] MEDS: ATORVASTATIN 20 MG TAB PO SCH (21:23)
[2020-11-06] MEDS: traMADol HCL 50 MG TAB PO PRN (21:25)
[2020-11-07] VITALS: BP 104/73
[2020-11-07] MEDS: ONDANSETRON HCL 4 MG/2 ML VIAL IV PRN ×2 (01:02→21:18)
[2020-11-07] MEDS: LORazepam 0.5 MG TAB PO PRN ×2 (01:02→21:18)
[2020-11-07] MEDS: InsuLIN REG 1unit/0.01ml Soln (100units/ml) SC SCH ×4 (06:38→21:59)
[2020-11-07] MEDS: ACCU-CHEK COMFORT CURVE STRIP VI SCH ×4 (06:38→21:18)
[2020-11-07] MEDS: SODIUM BICARB 50ML SYR 75 ML in SOD CHL 0.45% 1,000 ML IV SCH ×2 (06:39→19:40)
[2020-11-07] MEDS: ALBUTEROL SULF HFA 90MCG INH 200DOSE IN PRN ×2 (07:28→21:00)
[2020-11-07 08:00] VITALS: BP 121/85
[2020-11-07] MEDS: DexAMETHasone SOD PHOS 10MG/1ML VIAL INJ IV SCH (10:23)
[2020-11-07] MEDS: ASPirin 81 mg TAB PO SCH (10:23)
[2020-11-07] MEDS: ZINC SULFATE 220mg CAP or TAB PO SCH (10:23)
[2020-11-07] MEDS: ASCORBIC ACID 1,000 MG TAB PO SCH (10:25)
[2020-11-07] MEDS: CLOPIDOGREL BISULFATE 75 MG TAB PO SCH (10:25)
[2020-11-07] MEDS: CARVEDILOL 3.125 MG TAB PO SCH ×2 (10:25→22:00)
[2020-11-07] MEDS: CHOLECALCIFEROL (VITD3) 2,000 UNIT CAP PO SCH (10:25)
[2020-11-07] MEDS: ENOXAPARIN SOD 40 MG/0.4 ML SYRINGE SC SCH (10:26)
[2020-11-07] MEDS: DOXYCYCLINE 100MG/250ML 250 ML IV SCH ×2 (14:53→22:05)
[2020-11-07] MEDS: FAMOTIDINE (10MG/ML) 2ML VL IV SCH ×2 (14:53→22:05)
[2020-11-07 16:00] VITALS: BP 108/71
[2020-11-07 20:13] LABS: BUN/Creatinine Ratio 13.4; Calcium 8.9 mg/dL (8.5-10.1); Potassium 4.3 mmol/L (3.5-5.1)
[2020-11-07] MEDS: BUDESONIDE (INHALATION) 180 MCG IH IN SCH (21:00)
[2020-11-07] MEDS: traMADol HCL 50 MG TAB PO PRN (21:19)
[2020-11-07] MEDS: ATORVASTATIN 20 MG TAB PO SCH (22:06)
[2020-11-08] VITALS: BP 101/61
[2020-11-08] MEDS: SODIUM BICARB 50ML SYR 75 ML in SOD CHL 0.45% 1,000 ML IV SCH ×2 (04:04→15:38)
[2020-11-08] MEDS: InsuLIN REG 1unit/0.01ml Soln (100units/ml) SC SCH ×4 (05:50→22:00)
[2020-11-08] MEDS: ACCU-CHEK COMFORT CURVE STRIP VI SCH ×4 (05:51→22:18)
[2020-11-08] MEDS: BUDESONIDE (INHALATION) 180 MCG IH IN SCH ×2 (06:32→21:25)
[2020-11-08] MEDS: ALBUTEROL SULF HFA 90MCG INH 200DOSE IN PRN ×2 (06:32→21:25)
[2020-11-08 07:31] LABS: Basophils # (auto) 0 10 ^3/uL (0-0.2); Basophils % (auto) 0.2 % (0.0-2.0); Eosinophils # (auto) 0 10 ^3/uL (0-0.8); Hematocrit 30.8 % (36.0-46.0); Hemoglobin 10.4 g/dL (12.2-16.2); Lymphocytes % (auto) 10.2 % (10.0-50.0); Mean Corpuscular Hemoglobin 30.8 pg (28.0-32.0); Mean Corpuscular Hgb Conc. 33.8 g/dL (32.0-36.0); Mean Corpuscular Volume 91.2 fL (80.0-100.0); Monocytes # (auto) 0.8 10 ^3/uL (0-1.3); Monocytes % (auto) 8.3 % (0.0-12.0); Neutrophils # (auto) 7.9 10 ^3/uL (1.6-8.6); Neutrophils % (auto) 81.3 % (37.0-80.0); Platelet Count (auto) 445 10^3/uL (140-450); Red Blood Cells 3.38 10^6/uL (4.0-5.20); Red Cell Distribution Width 15.7 % (11.8-14.3); White Blood Cell 9.7 10^3/uL (4.4-10.8)
[2020-11-08 07:35] LABS: Calcium 8.8 mg/dL (8.5-10.1); Potassium 3.7 mmol/L (3.5-5.1)
[2020-11-08 07:37] LABS: BUN/Creatinine Ratio 15.6; CRP High Sensitivity 0.91 mg/dL (< 0.3)
[2020-11-08 08:00] VITALS: BP 107/75
[2020-11-08] MEDS ORDERED: DOXYCYCLINE 100MG/250ML 250 ML IV ONE (09:39)
[2020-11-08] MEDS: DOXYCYCLINE 100MG/250ML 250 ML IV SCH ×2 (09:44→22:17)
[2020-11-08] MEDS: DexAMETHasone SOD PHOS 10MG/1ML VIAL INJ IV SCH (09:44)
[2020-11-08] MEDS: FUROSEMIDE 100 MG/10ML VIAL IV SCH (09:46)
[2020-11-08] MEDS: ZINC SULFATE 220mg CAP or TAB PO SCH (09:46)
[2020-11-08] MEDS: ASPirin 81 mg TAB PO SCH (09:46)
[2020-11-08] MEDS: CLOPIDOGREL BISULFATE 75 MG TAB PO SCH (09:48)
[2020-11-08] MEDS: ENOXAPARIN SOD 40 MG/0.4 ML SYRINGE SC SCH (09:48)
[2020-11-08] MEDS: CARVEDILOL 3.125 MG TAB PO SCH ×2 (09:48→22:00)
[2020-11-08] MEDS: ASCORBIC ACID 1,000 MG TAB PO SCH (09:48)
[2020-11-08] MEDS: CHOLECALCIFEROL (VITD3) 2,000 UNIT CAP PO SCH (09:48)
[2020-11-08] MEDS ORDERED: FAMOTIDINE (10MG/ML) 2ML VL IV SCH (10:00)
[2020-11-08 16:00] VITALS: BP 95/62
[2020-11-08] MEDS: ATORVASTATIN 20 MG TAB PO SCH (22:18)
[2020-11-08] MEDS: LORazepam 0.5 MG TAB PO PRN (22:19)
[2020-11-08] MEDS: ONDANSETRON HCL 4 MG/2 ML VIAL IV PRN (22:19)
[2020-11-08] MEDS: traMADol HCL 50 MG TAB PO PRN (22:19)
[2020-11-09] VITALS: BP 98/60
[2020-11-09] MEDS: SODIUM BICARB 50ML SYR 75 ML in SOD CHL 0.45% 1,000 ML IV SCH ×2 (02:21→12:45)
[2020-11-09] MEDS: ACCU-CHEK COMFORT CURVE STRIP VI SCH ×3 (06:04→17:00)
[2020-11-09] MEDS: InsuLIN REG 1unit/0.01ml Soln (100units/ml) SC SCH ×3 (06:04→17:00)
[2020-11-09 08:00] VITALS: BP 94/60
[2020-11-09 08:31] LABS: Potassium 3.6 mmol/L (3.5-5.1)
[2020-11-09 08:38] LABS: BUN/Creatinine Ratio 17.1; Calcium 8.9 mg/dL (8.5-10.1)
[2020-11-09] MEDS: DOXYCYCLINE 100MG/250ML 250 ML IV SCH (09:19)
[2020-11-09] MEDS: ASPirin 81 mg TAB PO SCH (09:45)
[2020-11-09] MEDS: DexAMETHasone SOD PHOS 10MG/1ML VIAL INJ IV SCH (09:45)
[2020-11-09] MEDS: ZINC SULFATE 220mg CAP or TAB PO SCH (09:45)
[2020-11-09] MEDS: CLOPIDOGREL BISULFATE 75 MG TAB PO SCH (09:46)
[2020-11-09] MEDS: ASCORBIC ACID 1,000 MG TAB PO SCH (09:46)
[2020-11-09] MEDS: ENOXAPARIN SOD 40 MG/0.4 ML SYRINGE SC SCH (09:46)
[2020-11-09] MEDS: CHOLECALCIFEROL (VITD3) 2,000 UNIT CAP PO SCH (09:46)
[2020-11-09] MEDS: CARVEDILOL 3.125 MG TAB PO SCH (09:47)
[2020-11-09] MEDS: FUROSEMIDE 100 MG/10ML VIAL IV SCH ×2 (09:48→09:51)
[2020-11-09] MEDS: BUDESONIDE (INHALATION) 180 MCG IH IN SCH (10:00)
[2020-11-09] MEDS: ALBUTEROL SULF HFA 90MCG INH 200DOSE IN PRN (11:42)
[2020-11-09 15:46] VITALS: BP 99/69
[2020-11-09 16:00] VITALS: BP 95/65
== END 2020-11-09 18:05 | disposition home or self-care (01) | DRG 137 ==
LOC: ER 18:09 → OVERFLOW 18:10 → TELE-WESTW 11-02 21:53
PROVIDERS: ADMIT Family Medicine; ATTEND Hospitalist
PROC: 05H933Z Insertion of Infusion Device into Right Brachial Vein, Percutaneous Approach (ICD-10-PCS; principal; 2020-11-06)
PROC: B54MZZA Ultrasonography of Right Upper Extremity Veins, Guidance (ICD-10-PCS; 2020-11-06)
DX: U07.1 COVID-19 (principal); G93.41 Metabolic encephalopathy; J12.82 Pneumonia due to coronavirus disease 2019; E66.01 Morbid (severe) obesity due to excess calories; I13.0 Hypertensive heart and chronic kidney disease with heart failure and stage 1 through stage 4 chronic kidney disease, or unspecified chronic kidney disease; N17.9 Acute kidney failure, unspecified; E11.22 Type 2 diabetes mellitus with diabetic chronic kidney disease; I25.10 Atherosclerotic heart disease of native coronary artery without angina pectoris; I50.9 Heart failure, unspecified; K29.70 Gastritis, unspecified, without bleeding; E86.0 Dehydration; J98.11 Atelectasis; E78.5 Hyperlipidemia, unspecified; M10.9 Gout, unspecified; N18.32 Chronic kidney disease, stage 3b; T38.0X5A Adverse effect of glucocorticoids and synthetic analogues, initial encounter; Z87.891 Personal history of nicotine dependence; I25.2 Old myocardial infarction; Y92.89 Other specified places as the place of occurrence of the external cause; Z79.02 Long term (current) use of antithrombotics/antiplatelets; Z79.82 Long term (current) use of aspirin; Z79.4 Long term (current) use of insulin; Z79.899 Other long term (current) drug therapy; Z82.0 Family history of epilepsy and other diseases of the nervous system; Z82.3 Family history of stroke; Z82.49 Family history of ischemic heart disease and other diseases of the circulatory system; Z90.49 Acquired absence of other specified parts of digestive tract; Z90.710 Acquired absence of both cervix and uterus; Z83.3 Family history of diabetes mellitus; Z68.30 Body mass index [BMI] 30.0-30.9, adult
CPT/HCPCS: 36415; 70450; 71045; 76775; 80048; 80053; 80307; 81001; 82140; 82570; 82728; 82962; 83605; 84100; 84156; 84300; 84443; 84484; 85025; 85379; 85610; 85730; 86141; 87040; 87426; 87804; 93970; 94640; 96365; 96366; 96372; 96375; 97163; G0378; J1100; J1815; J2405; J3490

== ENCOUNTER → 2021-02-19 | Outpatient (CLI) | payer MEDICAID ==
[~2021-02-19] MED LIST changes: -LEVO250T19 PO; -LISI-275 PO
== END | disposition home or self-care (01) ==
LOC: LAB 10:13
PROVIDERS: ATTEND Internal Medicine Pulmonary Disease
DX: Z01.812 Encounter for preprocedural laboratory examination (principal); Z20.822 Contact with and (suspected) exposure to COVID-19
CPT/HCPCS: 36415; 87426

== ENCOUNTER → 2021-02-28 | Outpatient (CLI) | payer MEDICAID | END | disposition home or self-care (01) | LOC: LAB 10:43 | PROVIDERS: ATTEND Internal Medicine Pulmonary Disease | DX: Z01.812 Encounter for preprocedural laboratory examination (principal); Z20.822 Contact with and (suspected) exposure to COVID-19 | CPT/HCPCS: 36415; 87426 ==

== ENCOUNTER → 2021-03-01 | Outpatient (CLI) | payer MEDICAID ==
[~2021-03-01] MED LIST changes: +ALBUTEROL SULF 2.5 MG/0.5ML(0.5%) NEB SOLN ONE
== END | disposition home or self-care (01) ==
LOC: RT 10:25
PROVIDERS: ATTEND Internal Medicine Pulmonary Disease
DX: J18.9 Pneumonia, unspecified organism (principal)
CPT/HCPCS: 94060; 94727; 94729

== ENCOUNTER → 2021-08-07 | Outpatient (CLI) | payer MEDICAID ==
[~2021-08-07] MED LIST changes: -ALBUTEROL SULF 2.5 MG/0.5ML(0.5%) NEB SOLN ONE
[2021-08-07 10:45] VITALS: BP 105/66
[2021-08-07 11:18] VITALS: BP 104/68
== END | disposition home or self-care (01) ==
LOC: CHF HDHVI 10:50
PROVIDERS: ATTEND Internal Medicine Cardiovascular Disease
DX: E11.9 Type 2 diabetes mellitus without complications (principal); I25.10 Atherosclerotic heart disease of native coronary artery without angina pectoris; I95.9 Hypotension, unspecified; R53.83 Other fatigue
CPT/HCPCS: G0463

== ENCOUNTER → 2021-08-15 | Outpatient (CLI) | payer MEDICAID ==
[~2021-08-15] VITALS: Ht 162.6 cm; Wt 88.9 kg
[~2021-08-15] MED LIST changes: +ADENOSINE 75 MG in GIVE UN-DILUTED 0 ML IV ONE; +ADENOSINE 90 MG/30 ML INJ IV ONE
== END | disposition home or self-care (01) ==
LOC: Rad HDHVI 09:02
PROVIDERS: ATTEND Internal Medicine
DX: I25.10 Atherosclerotic heart disease of native coronary artery without angina pectoris (principal); I10 Essential (primary) hypertension; E78.5 Hyperlipidemia, unspecified; E11.9 Type 2 diabetes mellitus without complications; I25.2 Old myocardial infarction; Z82.49 Family history of ischemic heart disease and other diseases of the circulatory system
CPT/HCPCS: 78452; 93005; 96374; 96375; A9500; J0153

== ENCOUNTER → 2021-08-16 | Outpatient (CLI) | payer MEDICAID ==
[~2021-08-16] MED LIST changes: -ADENOSINE 75 MG in GIVE UN-DILUTED 0 ML IV ONE; -ADENOSINE 90 MG/30 ML INJ IV ONE
== END | disposition home or self-care (01) ==
LOC: Rad HDHVI 09:38
PROVIDERS: ATTEND Internal Medicine
DX: I34.0 Nonrheumatic mitral (valve) insufficiency (principal); I11.0 Hypertensive heart disease with heart failure; I50.9 Heart failure, unspecified
CPT/HCPCS: 93306

== ENCOUNTER 2022-02-01 21:56 | Emergency (ER) | payer MEDICAID ==
[~2022-02-01] VITALS: Ht 162.6 cm; Wt 93.9 kg
[2022-02-01 23:22] LABS: Basophils # (auto) 0.1 10 ^3/uL (0-0.2); Basophils % (auto) 1.9 % (0.0-2.0); Eosinophils # (auto) 0.4 10 ^3/uL (0-0.8); Eosinophils % (auto) 9.7 % (0.0-7.0); Hematocrit 37.9 % (36.0-46.0); Hemoglobin 12.6 g/dL (12.2-16.2); Lymphocytes # (auto) 0.8 10 ^3/uL (0.4-5.4); Lymphocytes % (auto) 18.9 % (10.0-50.0); Mean Corpuscular Hemoglobin 30.2 pg (28.0-32.0); Mean Corpuscular Hgb Conc. 33.3 g/dL (32.0-36.0); Mean Corpuscular Volume 90.8 fL (80.0-100.0); Monocytes # (auto) 0.2 10 ^3/uL (0-1.3); Monocytes % (auto) 4.4 % (0.0-12.0); Neutrophils # (auto) 2.7 10 ^3/uL (1.6-8.6); Neutrophils % (auto) 65.1 % (37.0-80.0); Red Blood Cells 4.17 10^6/uL (4.0-5.20); Red Cell Distribution Width 14.7 % (11.8-14.3); White Blood Cell 4.2 10^3/uL (4.4-10.8)
[2022-02-01 23:38] LABS: Albumin 3.4 g/dL (3.4-5.0); Calcium 8.9 mg/dL (8.5-10.1)
[2022-02-01 23:40] LABS: BUN/Creatinine Ratio 13.6
[2022-02-01 23:45] LABS: Bilirubin, Total 0.5 mg/dL (0.2-1.0); Total Protein 7.6 g/dL (6.4-8.2)
[2022-02-02 02:40] VITALS: BP 115/75
== END 2022-02-02 02:42 | disposition home or self-care (01) ==
LOC: ER 21:56
DX: R07.89 Other chest pain (principal); I11.0 Hypertensive heart disease with heart failure; I50.9 Heart failure, unspecified; E11.9 Type 2 diabetes mellitus without complications; Z90.49 Acquired absence of other specified parts of digestive tract
CPT/HCPCS: 36415; 71045; 80053; 83880; 84484; 85025; 93005

== ENCOUNTER → 2022-04-11 | Outpatient (CLI) | payer MEDICAID ==
[~2022-04-11] MED LIST changes: +ALLO300T2 PO; +ASCO1TAB27 PO; +CHOL500021 OR; +DULA0.5I SC; +ROSU40TA PO; +SACU1TAB PO; +SODI650T PO; +TRAM50TA2 PO
[2022-04-11 09:24] VITALS: BP 95/57
[2022-04-11 09:58] VITALS: BP 93/59
[2022-04-11 11:52] LABS: Basophils # (auto) 0 10 ^3/uL (0-0.2); Basophils % (auto) 0.5 % (0.0-2.0); Eosinophils # (auto) 0.2 10 ^3/uL (0-0.8); Eosinophils % (auto) 5.1 % (0.0-7.0); Hematocrit 37.4 % (36.0-46.0); Hemoglobin 12.4 g/dL (12.2-16.2); Lymphocytes # (auto) 0.9 10 ^3/uL (0.4-5.4); Lymphocytes % (auto) 25.4 % (10.0-50.0); Mean Corpuscular Hgb Conc. 33.1 g/dL (32.0-36.0); Mean Corpuscular Volume 90.4 fL (80.0-100.0); Monocytes # (auto) 0.3 10 ^3/uL (0-1.3); Monocytes % (auto) 8.4 % (0.0-12.0); Neutrophils # (auto) 2.1 10 ^3/uL (1.6-8.6); Neutrophils % (auto) 60.6 % (37.0-80.0); Nucleated Red Blood Cells % 0.3 %; Red Blood Cells 4.13 10^6/uL (4.0-5.20); Red Cell Distribution Width 14.8 % (11.8-14.3); White Blood Cell 3.5 10^3/uL (4.4-10.8)
[2022-04-11 12:21] LABS: Calcium 9.5 mg/dL (8.5-10.1); Potassium 3.7 mmol/L (3.5-5.1)
[2022-04-11 12:23] LABS: BUN/Creatinine Ratio 14.9
== END | disposition home or self-care (01) ==
LOC: Rad HDHVI 09:00
PROVIDERS: ATTEND Internal Medicine Cardiovascular Disease
DX: Z01.818 Encounter for other preprocedural examination (principal); R94.31 Abnormal electrocardiogram [ECG] [EKG]; R07.89 Other chest pain; R06.02 Shortness of breath
CPT/HCPCS: 36415; 71046; 80048; 85025; 85610; 85730; 93005; G0463

== ENCOUNTER 2022-04-15 11:28 | Day surgery (SDC) | payer MEDICAID ==
[~2022-04-15] VITALS: Ht 162.6 cm; Wt 93.9 kg
[~2022-04-15 11:28] MED LIST changes: -ATOR20TA50 PO; -CAR3125T PO
[2022-04-15] MEDS ORDERED: fentaNYL CITRATE 100 MCG/2 ML VL ONE (14:35)
[2022-04-15] MEDS ORDERED: MIDAZOLAM HCL 2MG/2ML 2ml VIAL (1mg/ml) ONE (14:35)
[2022-04-15] MEDS ORDERED: ANGIOMAX 250 MG VIAL IV ONE (14:35)
[2022-04-15] MEDS ORDERED: SODIUM CHL 0.9% 0 ML ONE (14:35)
[2022-04-15] MEDS ORDERED: LIDOCAINE 2%HCL (LOCAL ANESTH.) INJ 10ml MDV ONE (14:37)
== END 2022-04-15 17:39 | disposition home or self-care (01) ==
LOC: CATH 11:28
PROVIDERS: ATTEND Internal Medicine Cardiovascular Disease
DX: R94.39 Abnormal result of other cardiovascular function study (principal); I11.0 Hypertensive heart disease with heart failure; I50.9 Heart failure, unspecified; E78.5 Hyperlipidemia, unspecified; I25.2 Old myocardial infarction; E11.40 Type 2 diabetes mellitus with diabetic neuropathy, unspecified; E11.21 Type 2 diabetes mellitus with diabetic nephropathy; J44.9 Chronic obstructive pulmonary disease, unspecified; E11.59 Type 2 diabetes mellitus with other circulatory complications; Z95.5 Presence of coronary angioplasty implant and graft; Z82.49 Family history of ischemic heart disease and other diseases of the circulatory system; Z87.891 Personal history of nicotine dependence; Z83.3 Family history of diabetes mellitus; Z83.42 Family history of familial hypercholesterolemia; Z20.822 Contact with and (suspected) exposure to COVID-19
CPT/HCPCS: 75736; 93451; 93503; C1751; C1760; C1894; J1644; J2001; J2250; J3010; U0003; 93456; 99152; 99153

== ENCOUNTER → 2022-12-09 | Outpatient (CLI) | payer MEDICAID ==
[~2022-12-09] VITALS: Ht 162.6 cm; Wt 90.7 kg
[~2022-12-09] MED LIST changes: +ADENOSINE 76 MG in GIVE UN-DILUTED 0 ML IV ONE; +ADENOSINE 90 MG/30 ML INJ IV ONE
== END | disposition home or self-care (01) ==
LOC: Rad HDHVI 08:28
PROVIDERS: ATTEND Internal Medicine Cardiovascular Disease
DX: I11.0 Hypertensive heart disease with heart failure (principal); I50.23 Acute on chronic systolic (congestive) heart failure; I25.10 Atherosclerotic heart disease of native coronary artery without angina pectoris; I25.2 Old myocardial infarction; E11.9 Type 2 diabetes mellitus without complications; E78.00 Pure hypercholesterolemia, unspecified; Z82.49 Family history of ischemic heart disease and other diseases of the circulatory system; Z79.82 Long term (current) use of aspirin; Z79.899 Other long term (current) drug therapy
CPT/HCPCS: 78452; 93005; 96374; 96375; A9500; J0153

== ENCOUNTER → 2022-12-15 | Outpatient (CLI) | payer MEDICAID ==
[~2022-12-15] MED LIST changes: -ADENOSINE 76 MG in GIVE UN-DILUTED 0 ML IV ONE; -ADENOSINE 90 MG/30 ML INJ IV ONE
== END | disposition home or self-care (01) ==
LOC: Rad HDHVI 13:29
PROVIDERS: ATTEND Internal Medicine Cardiovascular Disease
DX: I08.3 Combined rheumatic disorders of mitral, aortic and tricuspid valves (principal)
CPT/HCPCS: 93306

== ENCOUNTER → 2024-04-26 | Outpatient (CLI) | payer MEDICAID ==
[~2024-04-26] MED LIST changes: -ROSU40TA PO; +ROSU40TA81 PO
== END | disposition home or self-care (01) ==
LOC: Rad HDHVI 13:55
PROVIDERS: ATTEND Internal Medicine Cardiovascular Disease
DX: I34.0 Nonrheumatic mitral (valve) insufficiency (principal); I11.9 Hypertensive heart disease without heart failure
CPT/HCPCS: 93306

== ENCOUNTER → 2025-07-11 | Outpatient (CLI) | payer MEDICAID | END | disposition home or self-care (01) | LOC: Rad HDHVI 12:58 | PROVIDERS: ATTEND Internal Medicine Cardiovascular Disease | DX: I11.0 Hypertensive heart disease with heart failure (principal); I50.23 Acute on chronic systolic (congestive) heart failure | CPT/HCPCS: 93306 ==

== ENCOUNTER 2025-07-17 13:46 | Outpatient (CLI) | payer MEDICAID ==
[~2025-07-17] VITALS: Ht 160 cm; Wt 81.6 kg
[2025-07-17] MEDS ORDERED: ADENOSINE 69 MG in GIVE UN-DILUTED 0 ML IV ONE (14:30)
[2025-07-17] MEDS ORDERED: ADENOSINE 90 MG/30 ML INJ IV ONE (16:55)
== END 2025-07-17 17:00 | disposition home or self-care (01) ==
LOC: Rad HDHVI 13:46
PROVIDERS: ATTEND Internal Medicine Cardiovascular Disease
DX: I49.3 Ventricular premature depolarization (principal); I11.0 Hypertensive heart disease with heart failure; I50.23 Acute on chronic systolic (congestive) heart failure; I25.2 Old myocardial infarction; I42.1 Obstructive hypertrophic cardiomyopathy; E11.40 Type 2 diabetes mellitus with diabetic neuropathy, unspecified; I25.10 Atherosclerotic heart disease of native coronary artery without angina pectoris; E78.00 Pure hypercholesterolemia, unspecified; R06.02 Shortness of breath; Z82.49 Family history of ischemic heart disease and other diseases of the circulatory system
CPT/HCPCS: 78452; 93017; A9500; J0153